=== PATIENT | female | born 2005 | race Caucasian/White ===

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

== ENCOUNTER 2025-01-11 15:30 | Emergency (ER) | payer OTHER, SELFPAY ==
[2025-01-11 15:43] VITALS: BP 112/63; PULSE 80; RESP 16; TEMP 36.9; O2SAT 100
--- NOTE | 2025-01-11 16:02 | ED.GENADULT ---
HPI - General Adult General Chief complaint: Headache Stated complaint: HEADACHE/NAUSEA Time Seen by Provider: 01/11/25 16:03 Source: patient, RN notes reviewed and old records reviewed Mode of arrival: ambulatory Limitations: no limitations History of Present Illness HPI narrative: 19-year-old female presents to the [facility] with temporal headaches, not the worst headache of her life. States that she had to leave work early last night Has had no nausea. No blurry vision or change in vision. Denies any fevers. Patient requesting work note Related Data Home Medications ?Medication ?Instructions ?Recorded ?Confirmed ?Last Taken ?Type sertraline 150 mg capsule 100 mg PO DAILY 12/24/21 08/12/22 1 Day Ago History ~07/16/22 L norgest/E estradiol-E estrad 01/11/25 Unknown History 0.15 mg-30 mcg (84)/10 mcg(7) tabs,3mos (Simpesse) levonorgestrel 120 mcg-e.estradiol patch 01/11/25 Unknown History 30 mcg/24 hr weekly transderm patch (Twirla) Allergies Allergy/AdvReac Type Severity Reaction Status Date / Time No Known Allergies Allergy Verified 01/11/25 15:34 Review of Systems Review of Systems: All systems reviewed & are unremarkable except as noted in HPI and below Constitutional: Constitutional: Reports as per HPI and Reports headache(s) ENT: Reports system reviewed and no additional complaints, except as documented Cardiovascular: Cardiovascular: Reports no additional cardiovascular complaints, Denies chest pain and Denies dyspnea Respiratory: Respiratory: Reports no additional respiratory complaints, Denies chest congestion, Denies cough and Denies dyspnea Musculoskeletal: Musculoskeletal: Reports no additional musculoskeletal complaints Integumentary/Breasts: Skin/Breast: Reports system reviewed and no additional complaints, except as docu PMFSH Past Medical History Medical History Suicide attempt Asthma Anxiety and depression H/O gastroesophageal reflux (GERD) Surgical History Surgical History No pertinent past surgical history Family History Family History Grandparent Diabetes mellitus Social History Social History Smoking status: Never smoker Substance use: current Lack of Transportation: No Lack of Food: Never True Current Housing: I Have Housing Concerned About Future Housing: No Difficulty Paying Gas/Electric Bills: No Difficulty Paying for Meds: No Currently Unemployed: No Education: Grade School Difficulty w/ Childcare or Family Care: YES Living arrangements: with family Occupation/Education: student Gender identity (if verbalized by the patient): Female Spiritual care concerns: No Comments At the time of my signature, I reviewed and agree with the nursing past medical, surgical, social, and family history. There is no relevant family history pertinent to the patient complaint. Exam Const: General: cooperative, healthy appearing, comfortable, no acute distress, well developed, alert and well nourished Nutritional Appearance: well nourished Orientation/consciousness: patient oriented x3 Limitations: no limitations HENMT: Head: normal to inspection Ears: hearing grossly normal bilaterally, external ears normal, TM's normal bilaterally, EAC's normal, mastoids normal and no periauricular adenopathy Mouth: Yes Normal oral and palatal mucosa present, Yes lip normal, Yes tongue normal and Yes moist mucous membranes Throat: posterior oropharynx normal, uvula midline and no uvular edema Eyes: General: appearance normal, both eyes and all related structures Alignment and Position: alignment normal Neck: Neck: normal visual inspection, full ROM, no lymphadenopathy and no meningeal signs Chest: Chest palpation & inspection: normal inspection of the chest Resp: Effort & Inspection: normal respiratory effort and able to speak in complete sentences Auscultation: clear to auscultation bilaterally, no crackles, no rales, no rhonchi and no wheezes Cardio: Rate: regular rate Skin: General skin exam: normal color and no rashes or lesions noted Neuro: General: patient oriented x3, gait normal, moves all extremities and no meningeal signs Cranial nerves: Yes Equal, round and reactive pupils present, Yes Bilaterally intact EOM present, Yes Nystagmus not present, Yes Normal facial strength present, Yes facial symmetry and Yes Midline tongue present Cognition (Neuro): normal cognition Speech: normal speech Gait exam (Neuro): Normal gait present Extrem: General: normal to inspection, full ROM, capillary refill normal and normal gait Psych: Appearance: grossly normal and well kempt Mental Status: mental status grossly normal Speech and movement: Normal speech and movement present and Clear speech present Affect: normal affect Attitude: cooperative Course Course Level of Care: Express Care Visit Vital Signs Vital signs: Vital Signs Temperature 98.5 F 01/11/25 15:43 Pulse Rate 80 01/11/25 15:43 Respiratory Rate 16 01/11/25 15:43 Blood Pressure 112/63 01/11/25 15:43 Pulse Oximetry 100 01/11/25 15:43 Temperature 98.5 F 01/11/25 15:43 Pulse Rate 80 01/11/25 15:43 Respiratory Rate 16 01/11/25 15:43 Blood Pressure 112/63 01/11/25 15:43 Pulse Oximetry 100 01/11/25 15:43 Reviewed Medical Decision Making MDM Narrative Medical decision making narrative: Patient sitting comfortably in exam room. Nontoxic, vitals stable. Patient in no acute distress Patient presents for headache that started when she had to leave work yesterday, requesting a work note for yesterday and today. Patient appropriate for outpatient treatment with close follow-up Discharge instructions reviewed with patient, as well as provided in writing per nursing staff. The instructions also include specific and strict return/GO TO THE ER as well as f/u information. All questions have been answered, and the patient deny any further questions with discharge and discharge plan. Some parts of this dictation were generated by voice recognition software and may contain typographical and/or grammatical inaccuracies. Differential Diagnosis Differential Diagnosis: Headache, URI Medical Records Medical records reviewed: Yes I reviewed the external patient's medical records. Vital Signs Vital Signs: Vital Signs Temperature 98.5 F 01/11/25 15:43 Pulse Rate 80 01/11/25 15:43 Respiratory Rate 16 01/11/25 15:43 Blood Pressure 112/63 01/11/25 15:43 Pulse Oximetry 100 01/11/25 15:43 Temperature 98.5 F 01/11/25 15:43 Pulse Rate 80 01/11/25 15:43 Respiratory Rate 16 01/11/25 15:43 Blood Pressure 112/63 01/11/25 15:43 Pulse Oximetry 100 01/11/25 15:43 Reviewed Lab Data Lab results reviewed: Yes I reviewed the patient's lab results. Labs: Reviewed Critical Care Time Critical Care Time Critical Care Time: No Discharge Plan Discharge Clinical Impression: Headache Patient Disposition: Home Condition: Stable Instructions: Antibiotic Form, Acute Headache (ED) Additional Instructions: Is important to rest in a cool dark room. You can alternate to 600 mg of ibuprofen and 650 mg of Tylenol every 4 hours. Try taking a 25 mg Benadryl Absolutely no screen time for 24 hours New or worsening symptoms such as the worst headache of your life, blurry vision or change in vision go directly to emergency room Patient Language: Brazilian Prescriptions: No Action L norgest/e.estradiol-e.estrad [Simpesse] 0.15 mg-30 mcg (84)/10 mcg (7) tablets,dose pack,3 month Twirla 120-30 mcg/24 hr patch weekly sertraline 150 mg capsule 100 mg PO DAILY Follow-up/Referrals: PURA,KAT JESUS [Primary Care Provider] - 1 Week Referral Note: express care follow up Stand Alone Forms: Work/School Release IP Time of Disposition: 16:09
== END 2025-01-11 16:13 | disposition home or self-care (01) ==
PROVIDERS: Emergency Provider Nurse Practitioner; PCP Nurse Practitioner Family
DX: R51.9 Headache, unspecified (principal); J45.909 Unspecified asthma, uncomplicated; K21.9 Gastro-esophageal reflux disease without esophagitis; F41.9 Anxiety disorder, unspecified; F32.A Depression, unspecified
CPT/HCPCS: 99213; G0463

== ENCOUNTER 2025-01-22 14:09 | Emergency (ER) | payer OTHER, SELFPAY ==
[2025-01-22 14:19] VITALS: BP 99/69; PULSE 82; RESP 14; TEMP 36.6; O2SAT 100
--- NOTE | 2025-01-22 15:30 | ED_ITS ---
HPI - Dental/Oral General Chief complaint: Dental/Oral Stated complaint: Skin Irritation/Tooth Pain Time Seen by Provider: 01/22/25 15:10 Source: patient, RN notes reviewed and old records reviewed Mode of arrival: ambulatory Limitations: no limitations History of Present Illness HPI Narrative: 19 year old female who presents to [facility] care with complaints of dental pain to the upper left molar region #14 tooth which is broken off with redness and swelling of gum. Patient has numerous caries of upper front teeth withfront upper teeth dark in color and broken. Patient also reports that she has a small pimple under her right chin that has had some purulent drainage, no acute redness noted to skin area or present drainage. MD Complaint: tooth pain Location: Tooth # (#14) Onset (ago): day(s) (2) Severity: mild Treatment prior to arrival: oral analgesic (Tylenol) Related Data Home Medications ?Medication ?Instructions ?Recorded ?Confirmed ?Last Taken ?Type sertraline 150 mg capsule 100 mg PO DAILY 12/24/21 1 Day Ago History ~07/16/22 L norgest/E estradiol-E estrad 01/11/25 Unknown Hist ory 0.15 mg-30 mcg (84)/10 mcg(7) tabs,3mos (Simpesse) levonorgestrel 120 mcg-e.estradiol patch 01/11/25 Unk nown History 30 mcg/24 hr weekly transderm patch (Twirla) Allergies Allergy/AdvReac Type Severity Reaction Status Date / Time No Known Allergies Allergy Verified 01/11/25 15:34 Review of Systems Review of Systems: CONSTITUTIONAL: Denies fever, chills, or sweats. ENT: Denies rhinorrhea, congestion, sore throat, or otalgia. Reports dental pain to#14 tooth where tooth has been broken off with reported abscess to site previously, denies any fevers chills or any facial swelling CARDIOVASCULAR: Denies chest pain, palpitations, or edema. RESPIRATORY: Denies cough or dyspnea. SKIN: Denies rash or itching, small healing pimple type of lesion to right chin area non draining. MUSCULOSKELETAL: Denies myalgia. NEUROLOGIC: Denies headache All systems reviewed & are unremarkable except as noted in HPI and below PMFSH Past Medical History Medical History Suicide attempt Asthma Anxiety and depression H/O gastroesophageal reflux (GERD) Surgical History Surgical History No pertinent past surgical history Family History Family History Grandparent Diabetes mellitus Social History Social History Smoking status: Never smoker Substance use: current Lack of Transportation: No Lack of Food: Never True Current Housing: I Have Housing Concerned About Future Housing: No Difficulty Paying Gas/Electric Bills: No Difficulty Paying for Meds: No Currently Unemployed: No Education: Grade School Difficulty w/ Childcare or Family Care: YES Living arrangements: with family Occupation/Education: student Gender identity (if verbalized by the patient): Female Spiritual care concerns: No Comments At time of signature, agree with nursing past medical, surgical, social and family history. There is no relevant family history pertinent to the presenting complaint Exam Narrative: GENERAL: Well-appearing, well-nourished, and in no acute distress. HEAD: Normocephalic, atraumatic. EYES: PERRLA and EOMI. ENT: Nares clear, no rhinorrhea or epistaxis. Mucous membranes moist. Missing teeth, broken teeth, caries with some redness and swelling of gum around broken tooth #14 no obvious signs of abscess. Patient has darken broken teeth upper front with obvious caries, no trismus or any Armando angina noted. NECK: Supple. no lymphadenopathy CHEST: Clear to auscultation. No respiratory distress.SAO2 100% on room air HEART: Regular rate and rhythm. No murmur heard. Normal peripheral pulses. SKIN: Warm, dry, no rash. small healing pimple type of lesion right chin area NEURO: No focal deficits. Alert and oriented x3. Course Course Emergency Course: Patient is aware of diagnosis, understands and agrees to treatment plan. Anticipatory guidance given. Patient agrees to follow-up as directed and is aware of reasons to seek care at the emergency department. Portions of this record may have been created with voice recognition software Level of Care: Express Care Visit Vital Signs Vital signs: Vital Signs Temperature 36.6 C 01/22/25 14:19 Pulse Rate 82 01/22/25 14:19 Respiratory Rate 14 01/22/25 14:19 Blood Pressure 99/69 L 01/22/25 14:19 Pulse Oximetry 100 01/22/25 14:19 Oxygen Delivery Room Air 01/22/25 14:19 Temperature 36.6 C 01/22/25 14:19 Pulse Rate 82 01/22/25 14:19 Respiratory Rate 14 01/22/25 14:19 Blood Pressure 99/69 L 01/22/25 14:19 Pulse Oximetry 100 01/22/25 14:19 Oxygen Delivery Room Air 01/22/25 14:19 Reviewed MDM - Dental/Oral MDM Narrative Medical decision making narrative: Patients pain and complaint coupled with physical findings are consistent with dentalgia. There are no focal signs of space occupying lesions that are compromising to the airway; no dysphagia, odynophagia, dysphonia, or dyspnea. No uvular deviation or soft palate edema. Patient is non-toxic appearing. The floor of the mouth is soft with no signs of Armando's Angina; no induration below mandible, no neck pain.? Patient is without trismus or drooling and able to swallow secretions.? Patient is felt appropriate for discharge home with dental follow up. Differential Diagnosis Differential diagnosis: Likely dental caries, toothache, dental abscess, fracture of tooth and other (dentalgia, poor dentition) Medical Records Attestation: I reviewed the patient's medical records. Critical Care Time Critical Care Time Critical Care Time: No Discharge Plan Discharge Clinical Impression: Abscess, dental, Dental caries Patient Disposition: Home Condition: Stable Instructions: Antibiotic Form, Dental Abscess (ED) Additional Instructions: Avoid temperature extremes May apply heat or ice to the face Gentle brushing and flossing Antibiotic as directed Tylenol for lesser pain Use ibuprofen regularly Follow-up with the dentist as soon as possible--see the list provided If your symptoms persist, change or worsen significantly before you can contact your personal physician then please, without delay, go to the emergency department for further evaluation. Follow-up with PCP in 7-10 days or sooner if needed Patient Language: Kazakh Prescriptions: New amoxicillin-pot clavulanate 875-125 mg tablet 1 tablet PO Q12H Qty: 20 0RF No Action L norgest/e.estradiol-e.estrad [Simpesse] 0.15 mg-30 mcg (84)/10 mcg (7) tablets,dose pack,3 month Twirla 120-30 mcg/24 hr patch weekly sertraline 150 mg capsule 100 mg PO DAILY Follow-up/Referrals: PURA,KAT JESUS [Primary Care Provider] Stand Alone Forms: Work/School Release IP Time of Disposition: 15:46 Quality [place] Coma Scale Eyes: Open Verbal: Oriented and Alert Motor: Follows Commands [place] Coma Total Score: 15
== END 2025-01-22 15:51 | disposition home or self-care (01) ==
PROVIDERS: Emergency Provider Registered Nurse; PCP Nurse Practitioner Family
DX: K04.7 Periapical abscess without sinus (principal); K02.9 Dental caries, unspecified; J45.909 Unspecified asthma, uncomplicated; K21.9 Gastro-esophageal reflux disease without esophagitis; F41.9 Anxiety disorder, unspecified; F32.A Depression, unspecified
CPT/HCPCS: 99213; G0463

== ENCOUNTER 2025-01-30 12:31 | Emergency (ER) | payer OTHER, SELFPAY ==
--- NOTE | ~2025-01-30 | XR_ITS ---
EXAMINATION: XR chest 2V, 01/30/2025 14:40 CDT HISTORY: cough, history of asthma COMPARISON: No comparisons available. Technique: 2 views obtained. Findings: The lungs are clear, no effusion. No pneumothorax. Heart is normal size. Mediastinal and hilar contours are within normal limits. Bony thorax no acute abnormality. Impression: No acute cardiopulmonary abnormality. Reviewed, dictated and finalized at location A. Impression: No acute cardiopulmonary abnormality.
[2025-01-30 12:33] VITALS: BP 122/72; PULSE 105; RESP 14; TEMP 36.9; O2SAT 99
--- NOTE | 2025-01-30 13:43 | ED.URI ---
HPI - URI/Sore Throat General Chief Complaint: Upper Respiratory Infection Stated Complaint: headache, cold sx's Time Seen by Provider: 01/30/25 12:36 History of Present Illness HPI Narrative: Patient is a 19-year-old female who presents to the ER with a 2 day history of headache, sore throat, cough, congestion, and mild shortness of breath. She reports she came in for evaluation today due to the pressure behind her right eye. Patient denies any recent fevers, neck stiffness, mastoid tenderness, or difficulty swallowing. She endorses a history of asthma, ADHD, anxiety, and depression. Related Data Home Medications ?Medication ?Instructions ?Recorded ?Confirmed ?Last Taken ?Type sertraline 150 mg capsule 100 mg PO DAILY 12/24/21 08/12/22 1 Day Ago History ~07/16/22 L norgest/E estradiol-E estrad 01/11/25 Unknown History 0.15 mg-30 mcg (84)/10 mcg(7) tabs,3mos (Simpesse) levonorgestrel 120 mcg-e.estradiol patch 01/11/25 Unknown History 30 mcg/24 hr weekly transderm patch (Twirla) Allergies Allergy/AdvReac Type Severity Reaction Status Date / Time No Known Allergies Allergy Verified 01/30/25 12:32 Review of Systems Review of Systems: All systems reviewed & are unremarkable except as noted in HPI and below PMFSH Past Medical History Medical History Suicide attempt Asthma Anxiety and depression H/O gastroesophageal reflux (GERD) Surgical History Surgical History No pertinent past surgical history Family History Family History Grandparent Diabetes mellitus Social History Social History Smoking status: Never smoker Substance use: current Lack of Transportation: No Lack of Food: Never True Current Housing: I Have Housing Concerned About Future Housing: No Difficulty Paying Gas/Electric Bills: No Difficulty Paying for Meds: No Currently Unemployed: No Education: Grade School Difficulty w/ Childcare or Family Care: YES Living arrangements: with family Occupation/Education: student Gender identity (if verbalized by the patient): Female Spiritual care concerns: No Exam Narrative: GENERAL: Ill appearing, well-nourished, non-toxic, in no acute distress. HEAD: Normocephalic, atraumatic. NECK: Supple. No adenopathy, no masses. RESPIRATORY: Airway patent, respirations nonlabored. Clear to auscultation bilaterally, no rales, rhonchi, wheezing. CARDIOVASCULAR: Regular rate and rhythm without murmurs, rubs, or gallops. Peripheral pulses 2+ and equal bilaterally. ABDOMINAL: Soft, nontender, nondistended, no hepatosplenomegaly. Normoactive BS. MUSCULOSKELETAL: Moves all extremities. Strength/ROM intact without gross deformities. SKIN: Warm, dry, pallor. No rashes. NEURO: A&O X3. Speech clear. Cranial nerves II-XII intact. No ataxic movements. PSYCHIATRIC: Appropriate mood and affect. Normal interaction. Course Vital Signs Vital signs: Vital Signs Temperature 36.9 C 01/30/25 12:33 Pulse Rate 105 H 01/30/25 12:33 Respiratory Rate 14 01/30/25 12:33 Blood Pressure 122/72 01/30/25 12:33 Pulse Oximetry 99 01/30/25 12:33 Oxygen Delivery Room Air 01/30/25 12:33 Temperature 36.9 C 01/30/25 12:33 Pulse Rate 105 H 01/30/25 12:33 Respiratory Rate 14 01/30/25 12:33 Blood Pressure 122/72 01/30/25 12:33 Pulse Oximetry 99 01/30/25 12:33 Oxygen Delivery Room Air 01/30/25 12:33 MDM - URI/Sore Throat MDM Narrative Medical decision making narrative: Patient is a 19-year-old female who presents to the ER with a 2 day history of headache, sore throat, cough, congestion, and mild shortness of breath. She reports she came in for evaluation today due to the pressure behind her right eye. Patient denies any recent fevers, neck stiffness, mastoid tenderness, or difficulty swallowing. She endorses a history of asthma, ADHD, anxiety, and depression. Labs Ordered: COVID/flu/RSV, strep swab Imaging Ordered: Chest x-ray Medications Ordered: Prednisone 40 mg p.o., ibuprofen 600 mg p.o. Results: Patient's COVID swab was positive. Her chest x-ray indicates no acute abnormalities. Diagnosis: COVID-19 Patient Education/Shared MDM: Results of lab work and imaging shared with patient. She endorses mild improvement of symptoms following medication administration. Patient strongly advised to maintain hydration status upon discharge and follow-up with her PCP as needed. She will be discharged home with a prescription for oral steroids, Flonase. Patient may take Tylenol and/or ibuprofen at home for pain control. She reports she has inhalers at home. Strict return precautions provided. Patient verbalized understanding and is in agreement with plan. Vital signs stable at time of discharge. All questions answered. Differential Diagnosis Differential diagnosis: Likely upper respiratory infection, sinusitis, viral infection, bronchitis and influenza Lab Data Attestation: I reviewed the patient's lab results. Labs: Lab Results 01/30/25 Range/Units 13:50 Influenza A (RT-PCR) Negative (Negative) Influenza B (RT-PCR) Negative (Negative) RSV (RT-PCR) Negative (Negative) SARS-CoV-2 RNA (RT-PCR) Positive A (Negative) Group A Strep (PCR) Not detected (Negative) Imaging Data Attestation: I personally reviewed and interpreted this imaging study as follows: Radiologist's impression: Impressions Chest X-Ray 01/30/25 14:52 Impression: No acute cardiopulmonary abnormality. Discharge Plan Discharge Clinical Impression: Upper respiratory infection, Sinusitis, COVID-19 Patient Disposition: Home Condition: Stable Instructions: Antibiotic Form, Sinusitis (ED), COVID-19 (Coronavirus Disease 2019) (ED) Additional Instructions: Please return to the ER with any worsening symptoms. Follow-up with primary care provider as needed. Take all medications as prescribed, including regularly scheduled medications. Remember to stay hydrated with lots of water. Sinus infections are not routinely treated with antibiotics so please use steroids and anti-inflammatories to help decrease swelling. Patient Language: Emirati Prescriptions: New methylprednisolone [Medrol (Robi)] 4 mg tablets,dose pack See Rx Instructions .ROUTE .COMPLEX Qty: 21 0RF Rx Instructions: orally per package directions fluticasone propionate [Flonase Allergy Relief] 50 mcg/actuation spray,suspension 2 spray intranasal DAILY Qty: 16 0RF Rx Instructions: administer into each nostril No Action L norgest/e.estradiol-e.estrad [Simpesse] 0.15 mg-30 mcg (84)/10 mcg (7) tablets,dose pack,3 month Twirla 120-30 mcg/24 hr patch weekly sertraline 150 mg capsule 100 mg PO DAILY amoxicillin-pot clavulanate 875-125 mg tablet 1 tablet PO Q12H Qty: 20 0RF Follow-up/Referrals: PURA,KAT JESUS [Primary Care Provider] Stand Alone Forms: Work/School Release IP Time of Disposition: 15:30
[2025-01-30] MEDS: IBUPROFEN 600 MG TABLET PO (14:12)
[2025-01-30 14:26] LABS: Strep Group A RT-PCR NOT DETECTED (Negative)
[2025-01-30 14:37] LABS: Influenza A QL RT-PCR Negative (Negative); Influenza B QL RT-PCR Negative (Negative); RSV RNA, RT-PCR Negative (Negative); SARS-CoV-2 RNA PCR Positive (Negative)
[2025-01-30 15:39] VITALS: BP 116/68; PULSE 78; RESP 16; TEMP 36.6; O2SAT 98
== END 2025-01-30 15:41 | disposition home or self-care (01) ==
PROVIDERS: Emergency Provider Registered Nurse; PCP Nurse Practitioner Family
DX: U07.1 COVID-19 (principal); J06.9 Acute upper respiratory infection, unspecified; J32.9 Chronic sinusitis, unspecified; J45.909 Unspecified asthma, uncomplicated; F41.9 Anxiety disorder, unspecified; F32.A Depression, unspecified; K21.9 Gastro-esophageal reflux disease without esophagitis
CPT/HCPCS: 71046; 87637; 87651; 99283; A9270; J7512

== ENCOUNTER 2025-02-13 19:05 | Emergency (ER) | payer OTHER, SELFPAY ==
--- NOTE | 2025-02-13 19:08 | ED.NECK ---
HPI - Neck Pain/Injury General Chief Complaint: Neck Pain/Injury Stated Complaint: NECK PAIN Time Seen by Provider: 02/13/25 19:13 Source: patient and RN notes reviewed Mode of arrival: ambulatory Limitations: no limitations History of Present Illness HPI Narrative: 19-year-old female presents concern for neck pain. Reports yesterday she went on a roller coaster and witchcraft a roller coaster she was having neck pain. Reports the pain worsened throughout the day and was worse when she woke up today. She denies decreased strength, sensation, range of motion in any extremity. She denies tingling in any extremity. She reports pain with range of motion. She reports pain goes up to the back her head with range of motion. She has taken Tylenol and ibuprofen without relief. MD complaint: neck pain Related Data Home Medications ?Medication ?Instructions ?Recorded ?Confirmed ?Last Taken ?Type sertraline 150 mg capsule 100 mg PO DAILY 12/24/21 08/12/22 1 Day Ago History ~07/16/22 L norgest/E estradiol-E estrad 1 tablet 01/11/25 Unknown History 0.15 mg-30 mcg (84)/10 mcg(7) tabs,3mos (Simpesse) Flovent HFA 02/13/25 Unknown History albuterol 02/13/25 Unknown History aripiprazole .ROUTE 02/13/25 Unknown History buspirone 02/13/25 Unknown History montelukast 02/13/25 Unknown History omeprazole 02/13/25 Unknown History Allergies Allergy/AdvReac Type Severity Reaction Status Date / Time No Known Allergies Allergy Verified 02/13/25 19:14 Review of Systems Review of Systems: CONSTITUTIONAL: Denies malaise, chills, sweats, or fever. CARDIOVASCULAR: Denies chest pain, palpitations, or edema. RESPIRATORY: Denies cough or dyspnea. SKIN: Denies rash or itching. MUSCULOSKELETAL: Reports neck pain NEUROLOGIC: Denies numbness, weakness, or headache. All systems reviewed & are unremarkable except as noted in HPI and below PMFSH Past Medical History Medical History Suicide attempt Asthma Anxiety and depression H/O gastroesophageal reflux (GERD) Surgical History Surgical History No pertinent past surgical history Family History Family History Grandparent Diabetes mellitus Social History Social History Smoking status: Never smoker Substance use: current Lack of Transportation: No Lack of Food: Never True Current Housing: I Have Housing Concerned About Future Housing: No Difficulty Paying Gas/Electric Bills: No Difficulty Paying for Meds: No Currently Unemployed: No Education: Grade School Difficulty w/ Childcare or Family Care: YES Living arrangements: with family Occupation/Education: student Gender identity (if verbalized by the patient): Female Spiritual care concerns: No Comments At time of signature, agree with nursing past medical, surgical, social and family history. There is no relevant family history pertinent to the presenting complaint Exam Narrative: GENERAL: Well-appearing, well-nourished, and in no acute distress. HEAD: Normocephalic, atraumatic. EYES: PERRLA and EOMI. NECK: Supple. No lymphadenopathy. CHEST: Clear to auscultation. No respiratory distress. HEART: Regular rate and rhythm. Distal pulses palpable and equal, cap refill <3 seconds ABDOMEN: Soft, nontender, nondistended, normal active bowel sounds, no palpable or pulsatile masses. No CVA tenderness MUSCULOSKELETAL: Normal range of motion and strength in all extremities. Normal sensation in dermatomal distributions with sensitivity to light touch and pain. Midline back tenderness to palpation. No paraspinal tenderness. Transfers from lying to sitting to standing. SKIN: Warm, dry, no rash. No ecchymosis, erythema, open wounds to neck. NEURO: No focal deficits. Alert and oriented x3. Reflexes intact. Normal gait. PSYCH: Normal mood and affect Course Course Emergency Course: I discussed patient's symptoms and exam and advised that further evaluation the emergency room would be advisable given patient's immediate onset of pain and midline neck tenderness. Patient states ?I am just here for a work note? and said she will go to the emergency room tomorrow. I again advised her of risks of not going to the emergency room sooner, patient verbalizes understanding. Portions of this record may have been created with voice recognition software Level of Care: Express Care Visit Vital Signs Vital signs: Reviewed. MDM - Neck Pain/Injury MDM Narrative Medical decision making narrative: Is patient greater than 65 years of age, have extreme para thesis or had a dangerous mechanism injury?: No Is patient in the sitting position, had delayed onset of pain, no midline tenderness, simple rear-end motor vehicle collision?: Patient did not have delayed onset of pain This patient able to actively rotate neck 45? to the left in the right: Yes I evaluated this patient in the express care. History is obtained from patient who is an independent historian and physical exam was performed.? Available medical records were reviewed. ? Patient is non-toxic appearing and is in no distress. ? Differential diagnosis and treatment plan were discussed with the patient. Patient agrees with discussion and after shared medical decision making agrees with plan of care. All questions were answered to the patient's satisfaction. Patient is appropriate for outpatient treatment and follow-up. Critical Care Time Critical Care Time Critical Care Time: No Discharge Plan Discharge Clinical Impression: Neck pain Patient Disposition: Home Condition: Stable Instructions: Acute Neck Pain (ED) Additional Instructions: Your pain would be best evaluate din the emergency room. Please go to the ER as soon as you can. Please follow up with your Primary Care Doctor within 48-72 hours - call for an appointment. Activity as tolerated. Take Motrin 800mg every 6-8 hours with food for the next 2-3 days, take muscle relaxers every 8 hours as needed for muscle spasm- do not drive or make any important decisions while on this medication for it can make you drowsy. You may apply ice to the area as needed. If you experience any worsening pain, swelling, numbness, weakness please go to ER. Patient Language: Eritrean Prescriptions: New cyclobenzaprine 10 mg tablet 10 mg PO TID PRN (Reason: muscle spasm) Qty: 20 0RF ibuprofen 800 mg tablet 800 mg PO Q6H PRN (Reason: pain) Qty: 30 0RF No Action L norgest/e.estradiol-e.estrad [Simpesse] 0.15 mg-30 mcg (84)/10 mcg (7) tablets,dose pack,3 month 1 tablet sertraline 150 mg capsule 100 mg PO DAILY aripiprazole .ROUTE omeprazole Flovent HFA albuterol montelukast buspirone fluticasone propionate [Flonase Allergy Relief] 50 mcg/actuation spray,suspension 2 spray intranasal DAILY Qty: 16 0RF Rx Instructions: administer into each nostril Follow-up/Referrals: PURA,KAT JESUS [Primary Care Provider] Stand Alone Forms: Work/School Release IP Time of Disposition: 19:22
[2025-02-13 19:14] VITALS: BP 111/78; PULSE 98; RESP 16; TEMP 36.2; O2SAT 100
== END 2025-02-13 19:25 | disposition home or self-care (01) ==
PROVIDERS: Emergency Provider Nurse Practitioner; PCP Nurse Practitioner Family
DX: M54.2 Cervicalgia (principal); J45.909 Unspecified asthma, uncomplicated; K21.9 Gastro-esophageal reflux disease without esophagitis; F41.9 Anxiety disorder, unspecified; F32.A Depression, unspecified
CPT/HCPCS: 99213; G0463

== ENCOUNTER 2025-02-14 09:56 | Emergency (ER) | payer OTHER, SELFPAY ==
--- NOTE | ~2025-02-14 | CT_ITS ---
CT thoracic spine without contrast CLINICAL HISTORY: pain s/p riding roller coaster Technique: Axial images thoracic inlet to skull base Sagittal and coronal reformats. No contrast CT images acquired with automatic exposure control for dose reduction DLP: 559 mGy-cm Comparison: Chest x-rays 01/30/2025 Findings: No fracture. No listhesis. No degenerative changes. No paraspinal soft tissue abnormality. Visualized heart and lungs unremarkable. Visualized retroperitoneum unremarkable. IMPRESSION: 1. No acute findings. Reviewed, dictated and finalized at location R. IMPRESSION: 1. No acute findings.
--- NOTE | ~2025-02-14 | CT_ITS ---
EXAMINATION: CT cervical spine wo con COMPARISON: None HISTORY: whiplash/pain s/p riding rollercoaster TECHNIQUE: Axial images were obtained through the spine without IV contrast. Coronal, sagittal reconstruction images were obtained from the axial views. CT scan performed using dose optimization techniques including the following automated exposure control; adjustment of mA and/or kV; use of iterative reconstruction technique. Automatic exposure control was used to reduce radiation dose. Permanent radiation dose record is archived to PACS. FINDINGS: The vertebral heights are intact. No fracture or subluxation. The disc heights are intact. Soft tissues unremarkable. Impression: No acute abnormality. Reviewed, dictated and finalized at location A. Impression: No acute abnormality.
[2025-02-14 10:02] VITALS: BP 137/79; PULSE 95; RESP 18; TEMP 36.8; O2SAT 99
[2025-02-14] MEDS: CYCLOBENZAPRINE HCL 5 MG TABLET PO (10:41)
[2025-02-14] MEDS: ACETAMINOPHEN 500 MG TABLET 1000 MG PO (10:41)
--- NOTE | 2025-02-14 10:54 | ED.NECK ---
HPI - Neck Pain/Injury General Chief Complaint: Neck Pain/Injury Stated Complaint: pain in neck since friday Time Seen by Provider: 02/14/25 10:13 Source: patient Mode of arrival: ambulatory Limitations: no limitations History of Present Illness HPI Narrative: Patient is a 19-year-old female who presents the ED with report of neck pain. Patient reports she rode the [employer] [place] [employer] on Friday. Began having pain throughout her neck and upper back on Friday. Was seen at urgent care, prescribed muscle relaxers, but was unable to pick this after the pharmacy. They recommended she come here to get head CT imaging of her neck. Patient reports persistent pain today. Took ibuprofen prior to arrival. Denies numbness or weakness of extremities, headache. Related Data Home Medications ?Medication ?Instructions ?Recorded ?Confirmed ?Last Taken ?Type sertraline 150 mg capsule 100 mg PO DAILY 12/24/21 08/12/22 1 Day Ago History ~07/16/22 L norgest/E estradiol-E estrad 1 tablet 01/11/25 Unknown History 0.15 mg-30 mcg (84)/10 mcg(7) tabs,3mos (Simpesse) Flovent HFA 02/13/25 Unknown History albuterol 02/13/25 Unknown History aripiprazole .ROUTE 02/13/25 Unknown History buspirone 02/13/25 Unknown History montelukast 02/13/25 Unknown History omeprazole 02/13/25 Unknown History Allergies Allergy/AdvReac Type Severity Reaction Status Date / Time No Known Allergies Allergy Verified 02/13/25 19:14 Review of Systems Review of Systems: All systems reviewed & are unremarkable except as noted in HPI. All systems reviewed & are unremarkable except as noted in HPI and below [facility] Past Medical History Medical History Suicide attempt Asthma Anxiety and depression H/O gastroesophageal reflux (GERD) Surgical History Surgical History No pertinent past surgical history Family History Family History Grandparent Diabetes mellitus Social History Social History Smoking status: Never smoker Substance use: current Lack of Transportation: No Lack of Food: Never True Current Housing: I Have Housing Concerned About Future Housing: No Difficulty Paying Gas/Electric Bills: No Difficulty Paying for Meds: No Currently Unemployed: No Education: Grade School Difficulty w/ Childcare or Family Care: YES Living arrangements: with family Occupation/Education: student Gender identity (if verbalized by the patient): Female Spiritual care concerns: No Exam Narrative: GENERAL: Well appearing, well-nourished, non-toxic, in no acute distress. HEAD: Normocephalic, atraumatic. NECK: C-collar in place. Diffuse TTP throughout cervical region and gris paraspinal musculature. No palpable bony deformities. RESPIRATORY: Airway patent, respirations nonlabored. CARDIOVASCULAR: Regular rate and rhythm. MUSCULOSKELETAL: Moves all extremities. No gross deformities. TTP along upper thoracic spinal musculature. Sensation and strength intact throughout bilateral lower extremities, equal bilaterally. SKIN: Warm, dry, normal color. NEURO: A&O X3. Speech clear. Cranial nerves II-XII grossly intact. Steady gait. No ataxic movements. PSYCHIATRIC: Appropriate mood and affect. Normal interaction. Course Vital Signs Vital signs: Vital Signs Temperature 98.3 F 02/14/25 10:02 Pulse Rate 95 02/14/25 10:02 Respiratory Rate 18 02/14/25 10:02 Blood Pressure 137/79 02/14/25 10:02 Pulse Oximetry 99 02/14/25 10:02 Oxygen Delivery Room Air 02/14/25 10:02 Temperature 98.3 F 02/14/25 10:02 Pulse Rate 95 02/14/25 10:02 Respiratory Rate 18 02/14/25 10:02 Blood Pressure 137/79 02/14/25 10:02 Pulse Oximetry 99 02/14/25 10:02 Oxygen Delivery Room Air 02/14/25 10:02 MDM - Neck Pain/Injury MDM Narrative Medical decision making narrative: Patient?s pain is positional and localized to paraspinal muscles without signs of cord compression. Normal neurologic exams. No red flag symptoms. Normal strength and sensation of upper extremities. CT of cervical and thoracic spine negative for fracture, no concerning findings. Discussed likely cervical strain/whiplash injury, continued management of such. Discussed rice therapy. Given return precautions. Discharged in stable condition. Medical Records Attestation: I reviewed the patient's medical records. Imaging Data Attestation: I personally reviewed and interpreted this imaging study as follows: Radiologist's impression: ITS Impressions Thoracic Spine CT 02/14/25 10:38 IMPRESSION: 1. No acute findings. Cervical Spine CT 02/14/25 10:40 Impression: No acute abnormality. Discharge Plan Discharge Clinical Impression: Cervical strain Qualifiers: Encounter type: initial encounter Qualified Code(s): S16.1XXA - Strain of muscle, fascia and tendon at neck level, initial encounter Patient Disposition: Home Condition: Stable Instructions: Antibiotic Form, Cervical Strain (ED), Cervical Sprain (ED) Additional Instructions: Continue Tylenol and Ibuprofen as needed for pain. You may use ice/heat, lidocaine patches to area of pain. Take muscle relaxers as needed and prescribed. Recommend taking these at night as they may cause sedation. Do not drive, operate heavy machinery, drink alcohol while on muscle relaxers as this may cause further sedation. Follow-up with your primary care doctor for further evaluation. Return to the ED if you experience worsening or severe pain, recurrent injury, numbness in arms or legs, going to the bathroom without meaning to, unable to keep down food or drink, or any other symptoms of concern. Patient Language: Luxembourgish Prescriptions: New lidocaine 5 % adhesive patch,medicated 1 patch topical DAILY Qty: 15 0RF Rx Instructions: leave on most painful area for up to 12 hrs No Action L norgest/e.estradiol-e.estrad [Simpesse] 0.15 mg-30 mcg (84)/10 mcg (7) tablets,dose pack,3 month 1 tablet sertraline 150 mg capsule 100 mg PO DAILY aripiprazole .ROUTE omeprazole Flovent HFA albuterol montelukast buspirone cyclobenzaprine 10 mg tablet 10 mg PO TID PRN (Reason: muscle spasm) Qty: 20 0RF ibuprofen 800 mg tablet 800 mg PO Q6H PRN (Reason: pain) Qty: 30 0RF fluticasone propionate [Flonase Allergy Relief] 50 mcg/actuation spray,suspension 2 spray intranasal DAILY Qty: 16 0RF Rx Instructions: administer into each nostril Follow-up/Referrals: PURA,ANN MARIE, ELECTRONIC GAMING DEVICE SUPERVISOR [Primary Care Provider] Time of Disposition: 10:57
--- OUTSIDE RECORDS SUMMARY | 2025-02-14 11:00 | XMS_ITS | Encounter Summary ---
Author Organization [facility] Address [facility] [place] [address] Care Team Providers Care Pta Name Role Phone Genia Gutierrez Primary Care Provider [phone] Encounter Details Date Type Department Care Team (Late st Contact Info) Description 11/20/2022 MyChart Message Enc [facility] [address] [place] [address] Mychart, [facility] Provider Air Quality Message Social History Tobacco Use Types Packs/Day Years Used Date Smoking Tobacco: Never Smokeless Tobacco: Never Alcohol Use Standard Drinks/Week Comments No 0 (1 standard drink = 0.6 oz pur e alcohol) AUDIT-C Answer Date Recorded Frequency of Alcohol Consumption Never 05/03/2019 Average Number of Drinks Not on file 019 Frequency of Binge Drinking Not on file 01/2019 PHQ-2 Answer Date Recorded Patient Health Questionnaire-2 Score 3 08/30/2022 Comments No Sex and Gender Information Value Date Recorded Sex Assigned at Not on file Legal Sex Female 10:57 AM P[employer]CH [employer] Gender Identity Not on file Sexual Orientation Not on file documented as of this encounter Plan of Treatment Not on file documented as of this encounter Visit Diagnoses Not on filedocumented in this encounter Additional Health Concerns Assessment Noted Time PHQ-9 Depression Total Score: 13 023 11:52 AM CDT PHQ-2 Depression Total Score: 0 08/31/19 23 11:54 AM CDT documented as of this encounter Care Teams Pta Relationship Specialty Start Date End Date Genia Gutierrez FNP [address] [place] [id number] PCP - General Nurse Practitioner Family 05/03/19 documented as of this encounter
--- OUTSIDE RECORDS SUMMARY | 2025-02-14 11:00 | XMS_ITS | Encounter Summary ---
Author Organization [facility] Address [facility] [place] [address] Care Team Providers Care Investigative Agent Name Role Phone Genia Gutierrez Primary Care Provider [phone] Encounter Details Date Type Department Care Team (Late st Contact Info) Description 11/18/2023 Therapy Plan [facility] [address] [place] [address] Gwen Weber, PT [address] [place], [place] [id number] Social History Tobacco Use Types Packs/Day Years Used Date Smoking Tobacco: Never Smokeless Tobacco: Never Alcohol Use Standard Drinks/Week Comments No 0 (1 standard drink = 0.6 oz pur e alcohol) AUDIT-C Answer Date Recorded Frequency of Alcohol Consumption Never 05/03/2019 Average Number of Drinks Not on file 019 Frequency of Binge Drinking Not on file 1201/2019 PHQ-2 Answer Date Recorded Patient Health Questionnaire-2 Score 3 08/30/2022 Comments No Sex and Gender Information Value Date Recorded Sex Assigned at Not on file 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
--- OUTSIDE RECORDS SUMMARY | 2025-02-14 11:00 | XMS_ITS | Clinical Summary ---
Author Organization [facility] Address [address] [place] [address] Care Team Providers Care Volunteer Services Supervisor Name Role Phone Genia Gutierrez [facility] Primary Care Provider [phone] Allergies No known active allergies Medications multi vitamin/minerals tablet Take 1 tablet by mouth daily. 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 Use with inhalers 1 each 1 Active ONDANSETRON 4 MG disintegrating tabletIndications: Nausea DISSOLVE 1 TABLET(4 MG) ON THE TONGUE EVERY 8 HOURS NEEDED FOR NAUSEA 20 tablet 2 Active Pyridoxine HCl (VITAMIN B-6) 25 MG Tab Take 1 tablet by mouth every morning. 2 Active ARIPiprazole (ABILIFY) 10 MG tabletIndications: Mild episode of recurrent major depressive disorder Take 1 tablet (10 mg total) by mouth daily. 90 tablet 3 3 Active busPIRone (BUSPAR) 10 MG tabletIndications: Anxiety Take 2 tablets (20 mg total) by mouth 2 (two) times daily. 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 3 Active cloNIDine (CATAPRES) 0.1 MG tablet Take 1 tablet (0.1 mg total) by mouth nightly at bedtime. 3 Active Vitamin D, Ergocalciferol, 23326 units CapIndications:Vit garcia D deficiency Take 50,000 Int'l Units by mouth once a week. 12 capsule 3 4 Active omeprazole (PRILOSEC) 20 MG capsuleIndications :Gastroesophageal reflux disease, unspecified whether esophagitis present Take 2 capsules (40 mg total) by mouth daily. 90 capsule 3 4 Active ibuprofen (MOTRIN) 600 MG tabletIndications: Chronic right shoulder pain Take 1 tablet (600 mg total) by mouth every 8 (eight) hours as needed for Pain. 30 tablet 1 4 Active Active Problems Problem Noted Date Diagnosed Date Moderate episode of recurrent major depressive d isorder 08/30/2022 Spontaneous vaginal delivery ([facility]) 3 Other iron deficiency anemia 08/30/2022 17 weeks gestation of ([facility]) 2021 Thoughts of self harm 08/28/2021 Mild episode of recurrent major depressive disor aleksandra 08/28/2021 Anxiety 04/11/2021 Chronic pain of right knee 04/11/2021 BMI 95th percentile or great er with athletic build, pediatric 02/19/2021 Gender identity disorder of adolescence 02/20/20 21 Vitamin D deficiency 10/30/2020 Vitamin B 12 deficiency 10/30/2020 Fever in other diseases 09/20/2020 Generalized abdominal pain 09/20/2020 Fatigue, unspecified type 09/20/2020 Acne vulgaris 11/16/2019 Gastroesophageal reflux dise ase, unspecified whether esophagitis present 06/22/2019 Chronic pain of both knees 06/22/2019 Dysmenorrhea 05/09/2019 Primary insomnia 05/09/2019 Non-suicidal self harm ([facility]) 019 Depression with anxiety 07/21/2018 Extrinsic asthma ([facility]) 03/20/2011 Overview (05/03/2019): Overview: Resolved Problems Problem Noted Date Diagnosed Date Resolved Date Sore throat 09/20/2020 02/19/2021 Sinus headache 09/20/2020 02/19/2021 Nausea 09/20/2020 02/19/2021 Body aches 09/20/2020 02/19/2021 Chills 09/20/2020 02/19/2021 Hospital discharge follow-up 06/22/2019 02/04/2020 BMI pediatric, 5th percentil e to less than 85% for age 1205/09/2019 02/19/2021 Encounter for medical examin ation to establish care 05/09/2019 02/04/2020 Encounters Date Type Department Care Team Description 01/30/2025 Scan HEALTH INFO SRVCS Scanned, Doc Med Group 01/22/2025 Scan MG HEALTH INFO SRVCS Scanned, Doc Med Group 01/11/2025 Scan HEALTH INFO SRVCS Scanned, Doc Med Group from Last 3 Months Immunizations Immunization Administration Dates Next Due DTaP-IPV (Kinrix) 10/24/2010 Dtap 05/21/2007 Fluzone 6 Months+ Quad (0.5 mL Prefilled Syringe) 03/07/2017,02/08/2016,05/11/2015,2013 HPV GARDASIL 9-VALENT 11/14/2016 HPV4 (Gardasil) 11/18/2014 Hepatitis A (Generic) 01/20/2009,11/09/2007 Hepatitis A Vaccine - 2 Dose 01/20/2009,11/09/19 08 Hepatitis B (Generic Peds) 2005 Hepatitis B Pediatric 2005 Hib (Generic) 02/19/2007, 6,03/10/2006,2005 Hib Vaccine, Prp-D 02/19/2007, 6,03/10/2006,2005 Influenza (Generic) 03/18/2011, 0,05/11/2008,2006,06/28/2006,05/12/2006 Influenza 3 yrs + Preservati ve Free (Fluzone) 04/02/2013 Influenza 3 yrs + with Prese rvative (Fluzone) 03/18/2011 Influenza Adult (Generic) 03/07/2017,,05/11/2015,2013,05/11/2008,03/24/2007,06/28/2006,1 2005 MMR 10/24/2010,2006 Menactra 11/14/2016 Pediarix 05/12/2006,03/10/2006,01/07/2006 Pneumococcal Vaccine 2006,05/12/20 06,03/10/2006,2005 Polio Ipv (Generic) 05/12/2006,03/10/2006,2005 Prevnar(Pcv 7) 2006, 6,03/10/2006,2005 Tdap (Boostrix) 11/14/2016 Tdap (Generic) 11/14/2016 Varicella (Generic) 10/24/2010,02/19/2007 Varicella Vaccine 10/24/2010,02/19/2007 Family History Medical History Relation Comments No Known Problems Father Arthritis Mother COPD Mother Depression Mother Hypertension Mother CHF Paternal Grandfather Diabetes Paternal Grandfather Diabetes Paternal Grandmother Relation Status Comments Father Mother Alive Paternal Grandfather Paternal Grandmother Social History Tobacco Use Types Packs/Day Years Used Date Smoking Tobacco: Never Smokeless Tobacco: Never Tobacco Cessation:Counseling Given: Not Answered Alcohol Use Standard Drinks/Week Comments No 0 [...] on file 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 Gender Identity Not on file Sexual Orientation Not on file Last Filed Vital Signs Vital Sign Reading Time Taken Comments Blood Pressure 117/71 06/02/2023 10:11 AM IMMUNOLOGY TEACHER Pulse 76 06/02/2023 10:11 AM IMMUNOLOGY TEACHER Temperature 36.8 C (98.3 F) 06/02/2023 10:11 AM IMMUNOLOGY TEACHER Respiratory Rate 16 06/02/2023 10:11 AM IMMUNOLOGY TEACHER Oxygen Saturation 100% 06/02/2023 10:11 AM IMMUNOLOGY TEACHER Inhaled Oxygen Concentration - - Weight 85.3 kg (188 lb) 06/02/2023 10:11 AM IMMUNOLOGY TEACHER Height 172.7 cm (5' 8) 06/02/2023 10:11 AM IMMUNOLOGY TEACHER Body Mass Index 28.59 06/02/2023 10:11 AM IMMUNOLOGY TEACHER Body Mass Index Percentile 93.18% 06/02/2023 10: 11 AM IMMUNOLOGY TEACHER Growth Chart: CDC (Girls, 2- 20 Years) Plan of Treatment Health Maintenance Due Date Last Done Comments Meningococcal B Vaccine (1 of 2 - Standard) 2021 Hepatitis C 11/08/2023 Annual Physical 01/21/2024 01/20/2023, 01/25, 11/16/2019 PHQ-2 (Physician [place]) 05/26/2024 Pneumococcal Vaccine: Pediatrics (0 to 5 Years) and At-Risk Patients (6 to 49 Years) (1 of 2 - PCV) 2024 2006, 05/12/2006, 03/10/2006, Additional history exists COVID-19 Vaccine ( - 2024- season) 2025 11/09/2020, 10/19/2020 DTaP, Tdap and Td Vaccines (8 - Td or Tdap) 11/14/2026 11/14/2016, 11/14/2016, 10/24/2010, Additional history exists Hepatitis B Vaccines Completed 05/12/2006, 03/10/2006, 01/07/2006, Additional history exists HPV Vaccines Completed 11/14/2016, 11/18/2014 Meningococcal Vaccine Aged Out 11/14/2016 No guadalupe nidia eligible based on patient's age to complete this topic RSV Immunizations Under 20 Months Aged Out No longer eligible based on patient's age to complete this topic Insurance [employer] Care Teams Volunteer Services Supervisor Relationship Specialty Start Date End Date Genia Gutierrez FNP [address] [place] [address] [phone] PCP - General Nurse Practitioner Family 05/03/19
--- OUTSIDE RECORDS SUMMARY | 2025-02-14 12:13 | XMS_ITS | Patient Health Record ---
Author Organization [facility] Address [address] [place] [address] Care Team Providers Care Casino Duty Manager Name Role Phone Eric Roxi Primary Care Provider Allergies No Known Allergies Reason For Referral No Information Medications Medication SIG (Take, Route, Frequency, Duration) Notes Start Date End Date Status Iron 325 (65 Fe) MG 1 tablet Orally Three times a Week Unknown Vitamin D 50 MCG (1999 UT) 1 tablet Orally Once a day Unknown Vitamin B 12 500 MCG 1 tablet Orally Once a day Unknown Famotidine 20 MG 1 tablet at bedtime as needed Orally Once a day Unknown busPIRone HCl 30 MG 1 tablet Orally Twice a day; Duration: 30 days Unknown Sertraline HCl 100 MG 1.5 tablet Orally Once a day; Duration: 30 days 02/10/2023 Unknown cloNIDine HCl 0.2 MG 1 tablet at bedtime Orally Once a day; Duration: 30 days Unknown Atomoxetine HCl 40 MG 1 capsule in the morning Orally Once a day; Duration: 30 days Approved until 06/18/24 Unknown Social History Tobacco Use: Social History Observation Description Date Details (start date - stop date) Never Smoker NA - NA Dont use, Tobacco Use/Smoking Question Answer Notes Are you a nonsmoker Section Notes: +cannabis use, no ETOH, isabela franco, street drugs. +cannabis use, no ETOH, isabela franco, street drugs. +cannabis use, no ETOH, isabela franco, street drugs. Problems Problem Type SNOMED Code ICD Code Onset Dates Problem Status W/U Status Risk Notes Problem Depression (646095657) Depression (F32.9) Active confirmed Problem Anxiety (85527055) Anxiety (F41.9) Active confirmed Problem Inattention (09167956) Inattention (R41.840) Active confirmed Plan Of Treatment No Information Insurance Providers Payer Name Payer Address Payer Phone Subscriber Number Group Number Insured Name Patient Relationship to Insured Coverage Start Date Coverage End Date [employer] [address] [place] [address] [id number] Genia Cannon Self - patient is the insured 3 [employer] [address] [place] [address] [id number] Genia Cannon Self - patient is the insured 3 Medical (General) History Medical History History ICD Code kidney stone 10/15. G1, P1 asthma GERD Hospitalization History Reason Date(Month/Year) childbirth 08/15
--- OUTSIDE RECORDS SUMMARY | 2025-02-14 12:13 | XMS_ITS | Clinical Summary ---
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 3 Active Vitamin D, Ergocalciferol, 25698 units CapIndications:Vit garcia D deficiency Take 50,000 [...] depressive d isorder 08/30/2022 Spontaneous vaginal delivery ([facility]) 3 Other iron deficiency anemia 08/30/2022 17 weeks gestation of ([facility]) 2021 Thoughts of self harm 08/28/2021 Mild [...] 05/09/2019 Primary insomnia 05/09/2019 Non-suicidal self harm ([facility]) 019 Depression with anxiety 07/21/2018 Extrinsic asthma ([facility]) 03/20/2011 Overview (05/03/2019): Overview: Resolved Problems Problem [...] on file Legal Sex Female 10:57 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 Gender Identity Not on file Sexual Orientation Not on file Last Filed Vital Signs Vital Sign Reading Time Taken Comments Blood Pressure 117/71 06/02/2023 10:11 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 TRUER Pulse 76 06/02/2023 10:11 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 TRUER Temperature 36.8 C (98.3 F) 06/02/2023 10:11 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 TRUER Respiratory Rate 16 06/02/2023 10:11 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 TRUER Oxygen Saturation 100% 06/02/2023 10:11 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 TRUER Inhaled Oxygen Concentration - - Weight 85.3 kg (188 lb) 06/02/2023 10:11 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 TRUER Height 172.7 cm (5' 8) 06/02/2023 10:11 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 TRUER Body Mass Index 28.59 06/02/2023 10:11 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 TRUER Body Mass Index Percentile 93.18% 06/02/2023 10: 11 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 TRUER Growth Chart: CDC (Girls, 2- 20 Years) Plan of Treatment Health Maintenance Due Date Last Done Comments Meningococcal B Vaccine (1 of 2 - Standard) 2021 Hepatitis C 11/08/2023 Annual Physical 01/21/2024 01/20/2023, 01/25, 11/16/2019 PHQ-2 (Physician [place]) 05/26/2024 Pneumococcal Vaccine: Pediatrics (0 to 5 [...] complete this topic Insurance [employer] Care Teams Lead Software Development Engineer Relationship Specialty Start Date End Date Genia Gutierrez FNP [address] [place] [address] [phone] PCP - General Nurse Practitioner Family 05/03/19
--- OUTSIDE RECORDS SUMMARY | 2025-02-14 12:13 | XMS_ITS | Encounter Summary ---
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
--- OUTSIDE RECORDS SUMMARY | 2025-02-14 12:13 | XMS_ITS | Encounter Summary ---
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
== END 2025-02-14 11:16 | disposition home or self-care (01) ==
PROVIDERS: Emergency Provider Physician Assistant; PCP Nurse Practitioner Family
DX: S16.1XXA Strain of muscle, fascia and tendon at neck level, initial encounter (principal); J45.909 Unspecified asthma, uncomplicated; F41.9 Anxiety disorder, unspecified; F32.A Depression, unspecified; K21.9 Gastro-esophageal reflux disease without esophagitis; X50.0XXA Overexertion from strenuous movement or load, initial encounter
CPT/HCPCS: 72125; 72128; 99284; A9270

== ENCOUNTER 2025-02-16 00:36 | Emergency (ER) | payer OTHER, SELFPAY ==
[2025-02-16 00:37] VITALS: BP 129/71; PULSE 83; RESP 14; TEMP 36.4; O2SAT 100
--- OUTSIDE RECORDS SUMMARY | 2025-02-16 00:38 | XMS_ITS | Patient Health Record ---
Author Organization [facility] Address [address] [place] [address] Care Team Providers Care Surgical Aide Name Role Phone Eric Roxi Primary Care [...] Status W/U Status Risk Notes Problem Depression (815282073) Depression (F32.9) Active confirmed Problem Anxiety (67712922) Anxiety (F41.9) Active confirmed Problem Inattention (85300336) Inattention (R41.840) Active confirmed Plan Of Treatment No Information Insurance Providers Payer Name Payer Address Payer Phone Subscriber Number Group Number Insured Name Patient Relationship to Insured Coverage Start Date Coverage End Date [employer] [address] [place] [phone] [id number] Genia Cannon Self - patient is the insured 3 [employer] [address] [place] [address] [id number] Genia Cannon Self - patient is the insured 3 Medical (General) History Medical History History ICD Code kidney stone 10/15. G1, P1 asthma GERD Hospitalization History Reason Date(Month/Year) childbirth 08/15
--- OUTSIDE RECORDS SUMMARY | 2025-02-16 00:38 | XMS_ITS | Clinical Summary ---
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 3 Active Vitamin D, Ergocalciferol, 36347 units CapIndications:Vit garcia D deficiency Take 50,000 [...] depressive d isorder 08/30/2022 Spontaneous vaginal delivery ([facility]) 3 Other iron deficiency anemia 08/30/2022 17 weeks gestation of ([facility]) 2021 Thoughts of self harm 08/28/2021 Mild [...] 05/09/2019 Primary insomnia 05/09/2019 Non-suicidal self harm ([facility]) 019 Depression with anxiety 07/21/2018 Extrinsic asthma ([facility]) 03/20/2011 Overview (05/03/2019): Overview: Resolved Problems Problem [...] on file Legal Sex Female 10:57 AM SALVAGE CUTTER Gender Identity Not on file Sexual Orientation Not on file Last Filed Vital Signs Vital Sign Reading Time Taken Comments Blood Pressure 117/71 06/02/2023 10:11 AM SALVAGE CUTTER Pulse 76 06/02/2023 10:11 AM SALVAGE CUTTER Temperature 36.8 C (98.3 F) 06/02/2023 10:11 AM SALVAGE CUTTER Respiratory Rate 16 06/02/2023 10:11 AM SALVAGE CUTTER Oxygen Saturation 100% 06/02/2023 10:11 AM SALVAGE CUTTER Inhaled Oxygen Concentration - - Weight 85.3 kg (188 lb) 06/02/2023 10:11 AM SALVAGE CUTTER Height 172.7 cm (5' 8) 06/02/2023 10:11 AM SALVAGE CUTTER Body Mass Index 28.59 06/02/2023 10:11 AM SALVAGE CUTTER Body Mass Index Percentile 93.18% 06/02/2023 10: 11 AM SALVAGE CUTTER Growth Chart: CDC (Girls, 2- 20 Years) Plan of Treatment Health Maintenance Due Date Last Done Comments Meningococcal B Vaccine (1 of 2 - Standard) 2021 Hepatitis C 11/08/2023 Annual Physical 01/21/2024 01/20/2023, 01/25, 11/16/2019 PHQ-2 (Physician [place]) 05/26/2024 Pneumococcal Vaccine: Pediatrics (0 to 5 [...] complete this topic Insurance [employer] Care Teams Professor Of Radiology Relationship Specialty Start Date End Date Genia Gutierrez FNP [address] [place] [address] [phone] PCP - General Nurse Practitioner Family 05/03/19
--- OUTSIDE RECORDS SUMMARY | 2025-02-16 00:38 | XMS_ITS | Encounter Summary ---
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
--- OUTSIDE RECORDS SUMMARY | 2025-02-16 01:18 | XMS_ITS | Clinical Summary ---
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 3 Active Vitamin D, Ergocalciferol, 96757 units CapIndications:Vit garcia D deficiency Take 50,000 [...] depressive d isorder 08/30/2022 Spontaneous vaginal delivery ([facility]) 3 Other iron deficiency anemia 08/30/2022 17 weeks gestation of ([facility]) 2021 Thoughts of self harm [...] 05/09/2019 Primary insomnia 05/09/2019 Non-suicidal self harm ([facility]) 019 Depression with anxiety 07/21/2018 Extrinsic asthma ([facility]) 03/20/2011 Overview (05/03/2019): Overview: Resolved [...] on file 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 Gender Identity Not on file Sexual Orientation Not on file Last Filed Vital Signs Vital Sign Reading Time Taken Comments Blood Pressure 117/71 06/02/2023 10:11 AM STOCK RECEIVER Pulse 76 06/02/2023 10:11 AM STOCK RECEIVER Temperature 36.8 C (98.3 F) 06/02/2023 10:11 AM STOCK RECEIVER Respiratory Rate 16 06/02/2023 10:11 AM STOCK RECEIVER Oxygen Saturation 100% 06/02/2023 10:11 AM STOCK RECEIVER Inhaled Oxygen Concentration - - Weight 85.3 kg (188 lb) 06/02/2023 10:11 AM STOCK RECEIVER Height 172.7 cm (5' 8) 06/02/2023 10:11 AM STOCK RECEIVER Body Mass Index 28.59 06/02/2023 10:11 AM STOCK RECEIVER Body Mass Index Percentile 93.18% 06/02/2023 10: 11 AM STOCK RECEIVER Growth Chart: CDC (Girls, 2- 20 Years) Plan of Treatment Health Maintenance Due Date Last Done Comments Meningococcal B Vaccine (1 of 2 - Standard) 2021 Hepatitis C 11/08/2023 Annual Physical 01/21/2024 01/20/2023, 01/25, 11/16/2019 PHQ-2 (Physician [place]) 05/26/2024 Pneumococcal Vaccine: Pediatrics (0 to 5 [...] complete this topic Insurance [employer] Care Teams Wrecking Supervisor Relationship Specialty Start Date End Date Genia Gutierrez FNP [address] [place] [address] [phone] PCP - General Nurse Practitioner Family 05/03/19
--- OUTSIDE RECORDS SUMMARY | 2025-02-16 01:18 | XMS_ITS | Encounter Summary ---
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
--- NOTE | 2025-02-16 02:12 | ED.RECABL ---
HPI - Recheck/Abnormal Lab/Rx General Chief Complaint: Recheck/Abnormal Lab/Rx Stated Complaint: teri coyle since sat - needs dr note Time Seen by Provider: 02/16/25 01:12 Source: patient Mode of arrival: ambulatory Limitations: no limitations History of Present Illness HPI narrative: This is a 19 year old female that presents to the ER for a work note. Reports recent whiplash injury after riding a roller coaster. She tried to go to work tonight, but was too uncomfortable. She needs a note to be off work. Related Data Home Medications ?Medication ?Instructions ?Recorded ?Confirmed ?Last Taken ?Type sertraline 150 mg capsule 100 mg PO DAILY 12/24/21 08/12/22 1 Day Ago History ~07/16/22 L norgest/E estradiol-E estrad 1 tablet 01/11/25 Unknown History 0.15 mg-30 mcg (84)/10 mcg(7) tabs,3mos (Simpesse) Flovent HFA 02/13/25 Unknown History albuterol 02/13/25 Unknown History aripiprazole .ROUTE 02/13/25 Unknown History buspirone 02/13/25 Unknown History montelukast 02/13/25 Unknown History omeprazole 02/13/25 Unknown History Allergies Allergy/AdvReac Type Severity Reaction Status Date / Time No Known Allergies Allergy Verified 02/13/25 19:14 Review of Systems Review of Systems: All systems reviewed & are unremarkable except as noted in HPI and below PMFSH Past Medical History Medical History Suicide attempt Asthma Anxiety and depression H/O gastroesophageal reflux (GERD) Surgical History Surgical History No pertinent past surgical history Family History Family History Grandparent Diabetes mellitus Social History Social History Smoking status: Never smoker Substance use: current Lack of Transportation: No Lack of Food: Never True Current Housing: I Have Housing Concerned About Future Housing: No Difficulty Paying Gas/Electric Bills: No Difficulty Paying for Meds: No Currently Unemployed: No Education: Grade School Difficulty w/ Childcare or Family Care: YES Living arrangements: with family Occupation/Education: student Gender identity (if verbalized by the patient): Female Spiritual care concerns: No Exam Narrative: GENERAL: Well-appearing, well-nourished, and in no acute distress. HEAD: Normocephalic, atraumatic. EYES: EOMI. NECK: Supple. Tender to palpation of paraspinal musculature CHEST: Clear to auscultation. No respiratory distress. No wheezes rales or rhonchi HEART: Regular rate and rhythm. No murmur heard. Normal peripheral pulses. EXTREMITIES: Normal range of motion. No edema. Strength equal in bilateral upper extremities (5/5) SKIN: Warm, dry, no rash. NEURO: No focal deficits. Alert and oriented x3. PSYCH: Normal mood and affect Course Vital Signs Vital signs: Vital Signs Temperature 97.6 F 02/16/25 00:37 Pulse Rate 83 02/16/25 00:37 Respiratory Rate 14 02/16/25 00:37 Blood Pressure 129/71 02/16/25 00:37 Pulse Oximetry 100 02/16/25 00:37 Oxygen Delivery Room Air 02/16/25 00:37 Temperature 97.6 F 02/16/25 00:37 Pulse Rate 83 02/16/25 00:37 Respiratory Rate 14 02/16/25 00:37 Blood Pressure 129/71 02/16/25 00:37 Pulse Oximetry 100 02/16/25 00:37 Oxygen Delivery Room Air 02/16/25 00:37 MDM - Recheck/Abnormal Lab/Rx MDM Narrative Medical decision making narrative: Patient presents to the ER for work note. Was seen here a couple of days ago diagnosed with cervical strain after riding a roller coaster. Given a note to be off work for couple of days while she recovers Critical Care Time Critical Care Time Critical Care Time: No Discharge Plan Discharge Clinical Impression: Acute cervical myofascial strain Qualifiers: Encounter type: subsequent encounter Qualified Code(s): S16.1XXD - Strain of muscle, fascia and tendon at neck level, subsequent encounter Patient Disposition: Home Condition: Stable Instructions: Cervical Strain (ED) Additional Instructions: Return to the ER if you experience weakness, numbness, or any other symptoms that are concerning to you Rest, use ice/heat, take anti-inflammatories (Aleve, Ibuprofen, Naproxen, etc) or Tylenol as needed for pain as well as muscle relaxer (Flexeril) as needed for pain. Muscle relaxers can make you drowsy, do not drive if you take this Follow up with your primary care doctor Patient Language: Turkmen Prescriptions: No Action L norgest/e.estradiol-e.estrad [Simpesse] 0.15 mg-30 mcg (84)/10 mcg (7) tablets,dose pack,3 month 1 tablet sertraline 150 mg capsule 100 mg PO DAILY aripiprazole .ROUTE omeprazole Flovent HFA albuterol montelukast buspirone cyclobenzaprine 10 mg tablet 10 mg PO TID PRN (Reason: muscle spasm) Qty: 20 0RF ibuprofen 800 mg tablet 800 mg PO Q6H PRN (Reason: pain) Qty: 30 0RF fluticasone propionate [Flonase Allergy Relief] 50 mcg/actuation spray,suspension 2 spray intranasal DAILY Qty: 16 0RF Rx Instructions: administer into each nostril lidocaine 5 % adhesive patch,medicated 1 patch topical DAILY Qty: 15 0RF Rx Instructions: leave on most painful area for up to 12 hrs Follow-up/Referrals: PURA,KAT JESUS [Primary Care Provider] Stand Alone Forms: Work/School Release IP
== END 2025-02-16 02:22 | disposition home or self-care (01) ==
PROVIDERS: Emergency Provider Physician Assistant; PCP Nurse Practitioner Family
DX: S16.1XXD Strain of muscle, fascia and tendon at neck level, subsequent encounter (principal); J45.909 Unspecified asthma, uncomplicated; K21.9 Gastro-esophageal reflux disease without esophagitis; F41.9 Anxiety disorder, unspecified; F32.A Depression, unspecified; Z79.899 Other long term (current) drug therapy; Y93.I1 Activity, roller coaster riding; X50.9XXD Other and unspecified overexertion or strenuous movements or postures, subsequent encounter
CPT/HCPCS: 99281

== ENCOUNTER 2025-02-27 22:13 | Emergency (ER) | payer OTHER, SELFPAY ==
[2025-02-27 22:14] VITALS: BP 119/80; PULSE 101; RESP 14; TEMP 37.2; O2SAT 100
--- OUTSIDE RECORDS SUMMARY | 2025-02-27 22:15 | XMS_ITS | Encounter Summary ---
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
--- OUTSIDE RECORDS SUMMARY | 2025-02-27 22:16 | XMS_ITS | Encounter Summary ---
Author Organization 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
--- OUTSIDE RECORDS SUMMARY | 2025-02-27 22:16 | XMS_ITS | Clinical Summary ---
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 3 Active Vitamin D, Ergocalciferol, 41482 units CapIndications:Vit garcia D deficiency Take 50,000 [...] depressive d isorder 08/30/2022 Spontaneous vaginal delivery ([facility]) 3 Other iron deficiency anemia 08/30/2022 17 weeks gestation of ([facility]) 2021 Thoughts of self harm 08/28/2021 Mild [...] 05/09/2019 Primary insomnia 05/09/2019 Non-suicidal self harm ([facility]) 019 Depression with anxiety 07/21/2018 Extrinsic asthma ([facility]) 03/20/2011 Overview (05/03/2019): Overview: Resolved Problems Problem [...] Encounters Date Type Department Care Team Description 02/16/2025 Scan [facility] Scanned, Doc [facility] 02/13/2025 Scan [facility] Scanned, Doc [facility] 01/30/2025 Scan [facility] Scanned, Doc [facility] 01/22/2025 Scan [facility] Scanned, Doc Med [facility] 01/11/2025 Scan [facility] Scanned, Doc [...] file 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 Gender Identity Not on file Sexual Orientation Not on file Last Filed Vital Signs Vital Sign Reading Time Taken Comments Blood Pressure 117/71 06/02/2023 10:11 AM CLEAN ROOM ASSEMBLER Pulse 76 06/02/2023 10:11 AM CLEAN ROOM ASSEMBLER Temperature 36.8 C (98.3 F) 06/02/2023 10:11 AM CLEAN ROOM ASSEMBLER Respiratory Rate 16 06/02/2023 10:11 AM CLEAN ROOM ASSEMBLER Oxygen Saturation 100% 06/02/2023 10:11 AM CLEAN ROOM ASSEMBLER Inhaled Oxygen Concentration - - Weight 85.3 kg (188 lb) 06/02/2023 10:11 AM CLEAN ROOM ASSEMBLER Height 172.7 cm (5' 8) 06/02/2023 10:11 AM CLEAN ROOM ASSEMBLER Body Mass Index 28.59 06/02/2023 10:11 AM CLEAN ROOM ASSEMBLER Body Mass Index Percentile 93.18% 06/02/2023 10: 11 AM CLEAN ROOM ASSEMBLER Growth Chart: CDC (Girls, 2- 20 Years) Plan of Treatment Health Maintenance Due Date Last Done Comments Meningococcal B Vaccine (1 of 2 - Standard) 2021 Hepatitis C 11/08/2023 Annual Physical 01/21/2024 01/20/2023, 01/25, 11/16/2019 PHQ-2 (Physician [place]) 05/26/2024 Pneumococcal Vaccine: Pediatrics (0 to 5 [...] patient's age to complete this topic Insurance [employer] Care Teams Scrap Worker Relationship Specialty Start Date End Date Genia Gutierrez FNP [address] [place] [phone] PCP - General Nurse Practitioner Family 05/03/19
--- OUTSIDE RECORDS SUMMARY | 2025-02-27 22:16 | XMS_ITS | Patient Health Record ---
Author Organization [facility] Address [address] [place] [address] Care Team Providers Care Graphic Manager Name Role Phone Eric Roxi Primary Care Provider [phone] Allergies No Known Allergies Reason For Referral [...] Status W/U Status Risk Notes Problem Depression (466622529) Depression (F32.9) Active confirmed Problem Anxiety (33796265) Anxiety (F41.9) Active confirmed Problem Inattention (39494425) Inattention (R41.840) Active confirmed Plan Of Treatment No Information Insurance Providers Payer Name Payer Address Payer Phone Subscriber Number Group Number Insured Name Patient Relationship to Insured Coverage Start Date Coverage End Date [employer] [address] [place] [phone] [id number] Genia Cannon Self - patient is the insured 3 [id number] [address] [place] [address] [id number] Genia Cannon Self - patient is the insured 3 Medical (General) History Medical History History ICD Code kidney stone 10/15. G1, P1 asthma GERD Hospitalization History Reason Date(Month/Year) childbirth 08/15
--- NOTE | 2025-02-28 01:24 | ED.DENTAL ---
HPI - Dental/Oral General Chief complaint: Dental/Oral Stated complaint: Upper dental abcess Time Seen by Provider: 02/28/25 00:47 Source: patient Mode of arrival: ambulatory Limitations: no limitations History of Present Illness HPI Narrative: Patient is 19-year-old female who presents with report of dental pain and abscess. Patient has long history of dental infections. Reports over last couple of days, she has been having pain around tooth 10 and has noticed an area of swelling to the roof of her mouth surrounding this tooth. Denies difficulty breathing or swallowing. Denies fevers. Does not currently have a dentist but has been trying to get into [employer]. Related Data Home Medications ?Medication ?Instructions ?Recorded ?Confirmed ?Last Taken ?Type sertraline 150 mg capsule 100 mg PO DAILY 12/24/21 08/12/22 1 Day Ago History ~07/16/22 L norgest/E estradiol-E estrad 1 tablet 01/11/25 Unknown History 0.15 mg-30 mcg (84)/10 mcg(7) tabs,3mos (Simpesse) Flovent HFA 02/13/25 Unknown History albuterol 02/13/25 Unknown History aripiprazole .ROUTE 02/13/25 Unknown History buspirone 02/13/25 Unknown History montelukast 02/13/25 Unknown History omeprazole 02/13/25 Unknown History Allergies Allergy/AdvReac Type Severity Reaction Status Date / Time No Known Allergies Allergy Verified 02/27/25 22:19 Review of Systems Review of Systems: All systems reviewed & are unremarkable except as noted in HPI. All systems reviewed & are unremarkable except as noted in HPI and below PMFSH Past Medical History Medical History Suicide attempt Asthma Anxiety and depression H/O gastroesophageal reflux (GERD) Surgical History Surgical History No pertinent past surgical history Family History Family History Grandparent Diabetes mellitus Social History Social History Smoking status: Never smoker Substance use: current Lack of Transportation: No Lack of Food: Never True Current Housing: I Have Housing Concerned About Future Housing: No Difficulty Paying Gas/Electric Bills: No Difficulty Paying for Meds: No Currently Unemployed: No Education: Grade School Difficulty w/ Childcare or Family Care: YES Living arrangements: with family Occupation/Education: student Gender identity (if verbalized by the patient): Female Spiritual care concerns: No Exam Narrative: GENERAL: Well appearing, well-nourished, non-toxic, in no acute distress. HEAD: Normocephalic, atraumatic. ENT: Diffuse dental decay and caries, most upper teeth eroded to gumline. Mild TTP surrounding tooth #10, small focal area of fluctuance to hard palate near base of this tooth. Focal TTP. No drainage. No stridor or trismus. Maintaining secretions. RESPIRATORY: Airway patent, respirations nonlabored. CARDIOVASCULAR: Regular rate and rhythm MUSCULOSKELETAL: Moves all extremities. No gross deformities. SKIN: Warm, dry, normal color. NEURO: A&O X3. Speech clear. PSYCHIATRIC: Appropriate mood and affect. Normal interaction. Course Vital Signs Vital signs: Vital Signs Temperature 99 F 02/27/25 22:14 Pulse Rate 101 H 02/27/25 22:14 Respiratory Rate 14 02/27/25 22:14 Blood Pressure 119/80 02/27/25 22:14 Pulse Oximetry 100 02/27/25 22:14 Oxygen Delivery Room Air 02/27/25 22:14 Temperature 99 F 02/27/25 22:14 Pulse Rate 101 H 02/27/25 22:14 Respiratory Rate 14 02/27/25 22:14 Blood Pressure 119/80 02/27/25 22:14 Pulse Oximetry 100 02/27/25 22:14 Oxygen Delivery Room Air 02/27/25 22:14 MDM - Dental/Oral MDM Narrative Medical decision making narrative: Patient with small abscess on hard palate of mouth with inflammation surrounding tooth 10. Patient is controlling secretions well without signs of airway compromise. Patient was initially agreeable to abscess I&D, however reports her anxiety is too severe and she cannot tolerate the procedure. She does not wish for the abscess to be drained at this time. Would like to be started on antibiotics and follow-up with dentist. Patient started on clindamycin. She has had amoxicillin/Augmentin recently. Given return precautions. Discharged in stable condition. Medical Records Attestation: I reviewed the patient's medical records. Discharge Plan Discharge Clinical Impression: Dental abscess Patient Disposition: Home Condition: Stable Instructions: Antibiotic Form, Dental Abscess (ED), Toothache (ED) Additional Instructions: Take antibiotics as prescribed. Follow-up with dentist for further evaluation. Recommend Tylenol/ibuprofen as needed for pain. Return for new or worsening concerns, difficulty breathing or swallowing, unable to open mouth, unable to keep down food or drink, or any other symptoms of concern. Patient Language: Marshallese Prescriptions: New clindamycin HCl [Cleocin HCl] 150 mg capsule 450 mg PO TID 7 Days Qty: 63 0RF No Action L norgest/e.estradiol-e.estrad [Simpesse] 0.15 mg-30 mcg (84)/10 mcg (7) tablets,dose pack,3 month 1 tablet sertraline 150 mg capsule 100 mg PO DAILY aripiprazole .ROUTE omeprazole Flovent HFA albuterol montelukast buspirone cyclobenzaprine 10 mg tablet 10 mg PO TID PRN (Reason: muscle spasm) Qty: 20 0RF ibuprofen 800 mg tablet 800 mg PO Q6H PRN (Reason: pain) Qty: 30 0RF fluticasone propionate [Flonase Allergy Relief] 50 mcg/actuation spray,suspension 2 spray intranasal DAILY Qty: 16 0RF Rx Instructions: administer into each nostril lidocaine 5 % adhesive patch,medicated 1 patch topical DAILY Qty: 15 0RF Rx Instructions: leave on most painful area for up to 12 hrs Follow-up/Referrals: PURA,KAT JESUS [Primary Care Provider] Stand Alone Forms: Work/School Release IP Time of Disposition: 01:40
[2025-02-28] MEDS: CLINDAMYCIN HCL 150 MG CAP 450 MG PO (01:52)
[2025-02-28 01:56] VITALS: BP 116/83; PULSE 93; RESP 16; O2SAT 98
[2025-02-28 01:58] VITALS: BP 116/83; PULSE 93; RESP 16; O2SAT 98
== END 2025-02-28 02:01 | disposition home or self-care (01) ==
PROVIDERS: Emergency Provider Physician Assistant; PCP Nurse Practitioner Family
DX: K04.7 Periapical abscess without sinus (principal); J45.909 Unspecified asthma, uncomplicated; F41.9 Anxiety disorder, unspecified; F32.A Depression, unspecified
CPT/HCPCS: 99283; J2003

== ENCOUNTER 2025-03-01 15:06 | Emergency (ER) | payer OTHER, SELFPAY ==
[2025-03-01 15:30] VITALS: BP 115/79; PULSE 70; RESP 16; TEMP 36.6; O2SAT 100
--- NOTE | 2025-03-01 15:54 | ED.GENADULT ---
HPI - General Adult General Chief complaint: Dental/Oral Stated complaint: tooth abscess Time Seen by Provider: 03/01/25 15:21 History of Present Illness HPI narrative: 19-year-old female presents to the emergency department for evaluation for persistent dental pain. Patient was evaluated emergency department yesterday and started on clindamycin. Yesterday patient was told she had a suspected abscess on the referral mouth and patient declined any drainage of this yesterday. Patient presents emergency department today complaining of persistent pain and she was enquiring about getting the abscess drained. Abscess does appear to have spontaneously drained and has shrunken appearing. No palpated fluctuance was noted. The practitioner who cared for the patient yesterday also read checked the abscess and felt that it was shrunken compared to her last visit. Patient will be provided additional medication for pain control Related Data Home Medications ?Medication ?Instructions ?Recorded ?Confirmed ?Last Taken ?Type sertraline 150 mg capsule 100 mg PO DAILY 12/24/21 08/12/22 1 Day Ago History ~07/16/22 L norgest/E estradiol-E estrad 1 tablet 01/11/25 Unknown History 0.15 mg-30 mcg (84)/10 mcg(7) tabs,3mos (Simpesse) Flovent HFA 02/13/25 Unknown History albuterol 02/13/25 Unknown History aripiprazole .ROUTE 02/13/25 Unknown History buspirone 02/13/25 Unknown History montelukast 02/13/25 Unknown History omeprazole 02/13/25 Unknown History Allergies Allergy/AdvReac Type Severity Reaction Status Date / Time No Known Allergies Allergy Verified 02/27/25 22:19 Review of Systems Review of Systems: All systems reviewed & are unremarkable except as noted in HPI and below PMFSH Past Medical History Medical History Suicide attempt Asthma Anxiety and depression H/O gastroesophageal reflux (GERD) Surgical History Surgical History No pertinent past surgical history Family History Family History Grandparent Diabetes mellitus Social History Social History Smoking status: Never smoker Substance use: current Lack of Transportation: No Lack of Food: Never True Current Housing: I Have Housing Concerned About Future Housing: No Difficulty Paying Gas/Electric Bills: No Difficulty Paying for Meds: No Currently Unemployed: No Education: Grade School Difficulty w/ Childcare or Family Care: YES Living arrangements: with family Occupation/Education: student Gender identity (if verbalized by the patient): Female Spiritual care concerns: No Exam Narrative: APPEARANCE: Well appearing, no pain, no distress, well-nourished. HEAD: normocephalic, atraumatic. EYES: PERRLA/EOMI, conjunctivae clear. NOSE: Normal no drainage EARS:TMS clear with good light reflex. THROAT: Pharynx clear, no exudate. mouth: No dental abscess amenable to drainage, patient does have extensive dental caries NECK: Supple. No adenopathy, no masses. RESPIRATORY: Airway patent, respirations nonlabored. Clear to auscultation bilaterally, no rales, rhonchi, wheezing. CARDIOVASCULAR: Regular rate and rhythm without murmurs rubs or gallops. ABDOMINAL: Soft, nontender, nondistended, normal bowel sounds MUSCULOSKELETAL: Moves all extremities. Strength/ROM intact, No edema, No calf tenderness. NEURO: Alert. Cranial nerves II through XII intact. Good gait. Good coordination SKIN: Warm, dry. Normal Color Course Vital Signs Vital signs: Vital Signs Temperature 97.9 F 03/01/25 15:30 Pulse Rate 70 03/01/25 15:30 Respiratory Rate 16 03/01/25 15:30 Blood Pressure 115/79 03/01/25 15:30 Pulse Oximetry 100 03/01/25 15:30 Oxygen Delivery Room Air 03/01/25 15:30 Temperature 97.9 F 03/01/25 15:30 Pulse Rate 70 03/01/25 15:30 Respiratory Rate 16 03/01/25 15:30 Blood Pressure 115/79 03/01/25 15:30 Pulse Oximetry 100 03/01/25 15:30 Oxygen Delivery Room Air 03/01/25 15:30 Medical Decision Making MDM Narrative Medical decision making narrative: 19-year-old female presents emergency department for evaluation for persistent dental pain after being started on clindamycin. Patient has only had 2 doses antibiotic. Patient states that she was having increased pain but was unable to take any medications for pain control or antibiotics due to the pain. patient was provided a follow-up with the [facility] dental resident see. Patient states she has been on the wait list for dentist for last 4 years. Differential Diagnosis Differential Diagnosis: Trismus, dental abscess, dental caries, dental pain Vital Signs Vital Signs: Vital Signs Temperature 97.9 F 03/01/25 15:30 Pulse Rate 70 03/01/25 15:30 Respiratory Rate 16 03/01/25 15:30 Blood Pressure 115/79 03/01/25 15:30 Pulse Oximetry 100 03/01/25 15:30 Oxygen Delivery Room Air 03/01/25 15:30 Temperature 97.9 F 03/01/25 15:30 Pulse Rate 70 03/01/25 15:30 Respiratory Rate 16 03/01/25 15:30 Blood Pressure 115/79 03/01/25 15:30 Pulse Oximetry 100 03/01/25 15:30 Oxygen Delivery Room Air 03/01/25 15:30 Discharge Plan Discharge Clinical Impression: Pain, dental Patient Disposition: Home Condition: Stable Instructions: Antibiotic Form Additional Instructions: Continue antibiotic as directed. Ibuprofen for pain control. [place] as needed for additional pain control. Zofran as needed for nausea control. Have close follow-up with your dentist. Follow-up with the [facility] dental residency. Address: [address] [place] [id number] Patient Language: Macedonian Prescriptions: New hydrocodone-acetaminophen 5-325 mg tablet 1 tablet PO Q12H PRN (Reason: pain) Qty: 14 0RF ondansetron 4 mg tablet,disintegrating 4 mg PO Q8H PRN (Reason: nausea and vomiting) Qty: 14 0RF No Action L norgest/e.estradiol-e.estrad [Simpesse] 0.15 mg-30 mcg (84)/10 mcg (7) tablets,dose pack,3 month 1 tablet sertraline 150 mg capsule 100 mg PO DAILY aripiprazole .ROUTE omeprazole Flovent HFA albuterol montelukast buspirone cyclobenzaprine 10 mg tablet 10 mg PO TID PRN (Reason: muscle spasm) Qty: 20 0RF ibuprofen 800 mg tablet 800 mg PO Q6H PRN (Reason: pain) Qty: 30 0RF fluticasone propionate [Flonase Allergy Relief] 50 mcg/actuation spray,suspension 2 spray intranasal DAILY Qty: 16 0RF Rx Instructions: administer into each nostril lidocaine 5 % adhesive patch,medicated 1 patch topical DAILY Qty: 15 0RF Rx Instructions: leave on most painful area for up to 12 hrs clindamycin HCl [Cleocin HCl] 150 mg capsule 450 mg PO TID 7 Days Qty: 63 0RF Follow-up/Referrals: PURA,KAT JESUS [Primary Care Provider] Stand Alone Forms: Work/School Release IP
--- OUTSIDE RECORDS SUMMARY | 2025-03-01 15:59 | XMS_ITS | Encounter Summary ---
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
--- OUTSIDE RECORDS SUMMARY | 2025-03-01 15:59 | XMS_ITS | Clinical Summary ---
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 3 Active Vitamin D, Ergocalciferol, 54330 units CapIndications:Vit garcia D deficiency Take 50,000 [...] depressive d isorder 08/30/2022 Spontaneous vaginal delivery ([facility]) 3 Other iron deficiency anemia 08/30/2022 17 weeks gestation of ([facility]) 2021 Thoughts [...] 05/09/2019 Primary insomnia 05/09/2019 Non-suicidal self harm ([facility]) 019 Depression with anxiety 07/21/2018 Extrinsic asthma (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 Gender Identity Not on file Sexual Orientation Not on file Last Filed Vital Signs Vital Sign Reading Time Taken Comments Blood Pressure 117/71 06/02/2023 10:11 AM ARCHITECTURAL MANAGER Pulse 76 06/02/2023 10:11 AM ARCHITECTURAL MANAGER Temperature 36.8 C (98.3 F) 06/02/2023 10:11 AM ARCHITECTURAL MANAGER Respiratory Rate 16 06/02/2023 10:11 AM ARCHITECTURAL MANAGER Oxygen Saturation 100% 06/02/2023 10:11 AM ARCHITECTURAL MANAGER Inhaled Oxygen Concentration - - Weight 85.3 kg (188 lb) 06/02/2023 10:11 AM ARCHITECTURAL MANAGER Height 172.7 cm (5' 8) 06/02/2023 10:11 AM ARCHITECTURAL MANAGER Body Mass Index 28.59 06/02/2023 10:11 AM ARCHITECTURAL MANAGER Body Mass Index Percentile 93.18% 06/02/2023 10: 11 AM ARCHITECTURAL MANAGER Growth Chart: CDC (Girls, 2- 20 Years) Plan of Treatment Health Maintenance Due Date Last Done Comments Meningococcal B Vaccine (1 of 2 - Standard) 2021 Hepatitis C 11/08/2023 Annual Physical 01/21/2024 01/20/2023, 01/25, 11/16/2019 PHQ-2 (Physician [place]) 05/26/2024 Pneumococcal Vaccine: Pediatrics (0 to 5 [...] this topic Insurance [employer] Care Teams Barker Peeler Relationship Specialty Start Date End Date Genia Gutierrez FNP [address] [place] [address] [phone] PCP - General Nurse Practitioner Family 05/03/19
--- OUTSIDE RECORDS SUMMARY | 2025-03-01 15:59 | XMS_ITS | Patient Health Record ---
Author Organization [facility] Address [address] [place] [address] Care Team Providers Care Job Change Crew Member Name Role Phone Eric Roxi Primary Care [...] Status W/U Status Risk Notes Problem Depression (303911503) Depression (F32.9) Active confirmed Problem Anxiety (94712547) Anxiety (F41.9) Active confirmed Problem Inattention (35861972) Inattention (R41.840) Active confirmed Plan Of Treatment No Information Insurance Providers Payer Name Payer Address Payer Phone Subscriber Number Group Number Insured Name Patient Relationship to Insured Coverage Start Date Coverage End Date [employer] [address] [place] [address] [id number] Genia Cannon Self - patient is the insured 3 [employer] [address] [place] [address] [id number] Genia Cannon Self - patient is the insured 3 Medical (General) History Medical History History ICD Code kidney stone 10/15. G1, P1 asthma GERD Hospitalization History Reason Date(Month/Year) childbirth 08/15
--- OUTSIDE RECORDS SUMMARY | 2025-03-01 15:59 | XMS_ITS | Encounter Summary ---
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
--- OUTSIDE RECORDS SUMMARY | 2025-03-01 16:39 | XMS_ITS | Clinical Summary ---
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 3 Active Vitamin D, Ergocalciferol, 80813 units CapIndications:Vit garcia D deficiency Take 50,000 [...] depressive d isorder 08/30/2022 Spontaneous vaginal delivery ([facility]) 3 Other iron deficiency anemia 08/30/2022 17 weeks gestation of ([facility]) 2021 Thoughts of self harm 08/28/2021 Mild [...] 05/09/2019 Primary insomnia 05/09/2019 Non-suicidal self harm ([facility]) 019 Depression with anxiety 07/21/2018 Extrinsic asthma ([facility]) 03/20/2011 Overview (05/03/2019): Overview: Resolved Problems Problem [...] on file Legal Sex Female 10:57 AM INTEGRATED 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 Gender Identity Not on file Sexual Orientation Not on file Last Filed Vital Signs Vital Sign Reading Time Taken Comments Blood Pressure 117/71 06/02/2023 10:11 AM INTEGRATED LOGISTICS PROGRAMS DIRECTOR Pulse 76 06/02/2023 10:11 AM INTEGRATED LOGISTICS PROGRAMS DIRECTOR Temperature 36.8 C (98.3 F) 06/02/2023 10:11 AM INTEGRATED LOGISTICS PROGRAMS DIRECTOR Respiratory Rate 16 06/02/2023 10:11 AM INTEGRATED LOGISTICS PROGRAMS DIRECTOR Oxygen Saturation 100% 06/02/2023 10:11 AM INTEGRATED LOGISTICS PROGRAMS DIRECTOR Inhaled Oxygen Concentration - - Weight 85.3 kg (188 lb) 06/02/2023 10:11 AM INTEGRATED LOGISTICS PROGRAMS DIRECTOR Height 172.7 cm (5' 8) 06/02/2023 10:11 AM INTEGRATED LOGISTICS PROGRAMS DIRECTOR Body Mass Index 28.59 06/02/2023 10:11 AM INTEGRATED LOGISTICS PROGRAMS DIRECTOR Body Mass Index Percentile 93.18% 06/02/2023 10: 11 AM INTEGRATED LOGISTICS PROGRAMS DIRECTOR Growth Chart: CDC (Girls, 2- 20 Years) Plan of Treatment Health Maintenance Due Date Last Done Comments Meningococcal B Vaccine (1 of 2 - Standard) 2021 Hepatitis C 11/08/2023 Annual Physical 01/21/2024 01/20/2023, 01/25, 11/16/2019 PHQ-2 (Physician [place]) 05/26/2024 Pneumococcal Vaccine: Pediatrics (0 to 5 [...] this topic Insurance [employer] Care Teams Life Science Teacher Relationship Specialty Start Date End Date Genia Gutierrez FNP [address] [place] [address] [phone] PCP - General Nurse Practitioner Family 05/03/19
--- OUTSIDE RECORDS SUMMARY | 2025-03-01 16:39 | XMS_ITS | Encounter Summary ---
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
--- OUTSIDE RECORDS SUMMARY | 2025-03-01 16:39 | XMS_ITS | Encounter Summary ---
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
== END 2025-03-01 16:30 | disposition home or self-care (01) ==
LOC: ANHED 16:03
PROVIDERS: Emergency Provider Emergency Medicine; PCP Nurse Practitioner Family
DX: K08.89 Other specified disorders of teeth and supporting structures (principal); K02.9 Dental caries, unspecified; K21.9 Gastro-esophageal reflux disease without esophagitis; F41.9 Anxiety disorder, unspecified; F32.A Depression, unspecified; Z79.3 Long term (current) use of hormonal contraceptives; Z79.899 Other long term (current) drug therapy
CPT/HCPCS: 99283

== ENCOUNTER 2025-03-03 | Emergency (ER) | payer OTHER, SELFPAY ==
[2025-03-03 00:16] VITALS: BP 146/78; PULSE 80; RESP 16; TEMP 36.6; O2SAT 99
[2025-03-03 03:50] VITALS: BP 145/72; PULSE 73; RESP 18; TEMP 36.4; O2SAT 99
--- NOTE | 2025-03-03 04:00 | PC.NURSE ---
Patient reports she is no longer going to wait. Instructed to return to ED for continuing or worsening symptoms. Patient ambulated out of ED with all belongings and a steady gait.
== END 2025-03-03 04:00 | disposition left against medical advice (07) ==
PROVIDERS: PCP Nurse Practitioner Family
DX: R11.2 Nausea with vomiting, unspecified (principal)
CPT/HCPCS: 99199

== ENCOUNTER 2025-03-03 10:32 | Emergency (ER) | payer OTHER, SELFPAY ==
[2025-03-03 10:43] VITALS: BP 120/57; PULSE 68; RESP 16; TEMP 36.7; O2SAT 100
--- NOTE | 2025-03-03 12:05 | ED.DENTAL ---
HPI - Dental/Oral General Chief complaint: Dental/Oral Stated complaint: Toothache Time Seen by Provider: 03/03/25 11:15 Source: patient, RN notes reviewed and old records reviewed Mode of arrival: ambulatory Limitations: no limitations History of Present Illness HPI Narrative: 19-year-old female patient presents today complaining of nausea. She has been seen a few times this week in the emergency department for dental abscess, most recently 2 days ago. Three days ago she was placed on clindamycin in the emergency department at [facility], which she has been taking as prescribed. Yesterday she was prescribed Zofran for her nausea as well as some [place] for severe pain. States the Zofran has not been helping and she had to leave work due to the severe nausea and few vomiting episodes. She has also tried some Tums without improvement. Related Data Home Medications ?Medication ?Instructions ?Recorded ?Confirmed ?Last Taken ?Type sertraline 150 mg capsule 100 mg PO DAILY 12/24/21 03/03/25 1 Day Ago History ~07/16/22 L norgest/E estradiol-E estrad 1 tablet PO 01/11/25 Unknown History 0.15 mg-30 mcg (84)/10 mcg(7) tabs,3mos (Simpesse) Flovent HFA 02/13/25 Unknown History albuterol 02/13/25 Unknown History aripiprazole .Route 02/13/25 03/03/25 History buspirone 02/13/25 03/03/25 History montelukast 10 mg PO 02/13/25 Unknown History omeprazole 02/13/25 Unknown History clindamycin HCl 150 mg capsule mg 03/03/25 Unknown History Allergies Allergy/AdvReac Type Severity Reaction Status Date / Time No Known Allergies Allergy Verified 03/03/25 10:54 [facility] Past Medical History Medical History Suicide attempt Asthma Anxiety and depression H/O gastroesophageal reflux (GERD) Surgical History Surgical History No pertinent past surgical history Family History Family History Grandparent Diabetes mellitus Social History Social History Smoking status: Never smoker Substance use: current Lack of Transportation: No Lack of Food: Never True Current Housing: I Have Housing Concerned About Future Housing: No Difficulty Paying Gas/Electric Bills: No Difficulty Paying for Meds: No Currently Unemployed: No Education: Grade School Difficulty w/ Childcare or Family Care: YES Living arrangements: with family Occupation/Education: student Gender identity (if verbalized by the patient): Female Spiritual care concerns: No Comments At time of signature, I have reviewed and agree with nursing past medical, surgical, social and family history unless otherwise noted. Please see nursing chart for further information. There is no relevant family history pertinent to the presenting complaint Exam Narrative: GENERAL: Well-appearing, well-nourished, and in no acute distress. HEAD: Normocephalic, atraumatic. EYES: EOMI. No redness or drainage. Conjunctivae normal. ENT: Mucous membranes pink and moist. Gross dental decay. Ruptured abscess to the hard palate behind tooth 10. No facial swelling noted. NECK: Normal AROM. CHEST: No respiratory distress. EXTREMITIES: Normal range of motion. No edema. SKIN: Warm, dry, no rash. Capillary refill normal. Normal skin turgor. NEURO: No focal deficits. Alert and oriented x3. Gait steady. PSYCH: Normal affect. No signs of depression or anxiety. Course Course Level of Care: Express Care Visit Vital Signs Vital signs: Vital Signs Temperature 98.1 F 03/03/25 10:43 Pulse Rate 68 03/03/25 10:43 Respiratory Rate 16 03/03/25 10:43 Blood Pressure 120/57 L 03/03/25 10:43 Pulse Oximetry 100 03/03/25 10:43 Temperature 98.1 F 03/03/25 10:43 Pulse Rate 68 03/03/25 10:43 Respiratory Rate 16 03/03/25 10:43 Blood Pressure 120/57 L 03/03/25 10:43 Pulse Oximetry 100 03/03/25 10:43 Reviewed MDM - Dental/Oral MDM Narrative Medical decision making narrative: 19-year-old female patient presents today with nausea related to clindamycin use. She is on clindamycin for past couple of days related to severe dental abscess on the hard palate. She has been taking Zofran prescribed by the ER, but states it is not helpful. She is requesting a different medication. Upon exam, patient has a ruptured abscess on the hard palate behind tooth 10. Short prescription of Compazine sent to pharmacy. Unable to prescribe Reglan due to severe contraindication with her aripiprazole. Patient also requesting work note as she had to leave due to vomiting. Vital signs stable. Anticipatory guidance given. Differential Diagnosis Differential diagnosis: Likely other (Nausea and vomiting) Critical Care Time Critical Care Time Critical Care Time: No Discharge Plan Discharge Clinical Impression: Nausea Patient Disposition: Home Condition: Stable Instructions: Acute Nausea and Vomiting (DC) Additional Instructions: Please take the Compazine as prescribed. Continue your clindamycin as prescribed for your dental infection. Follow-up with a dentist as soon as possible. Your blood pressure was elevated above 120/80 today at Urgent Care. This puts you above the threshold for follow up. Please schedule a followup visit with your personal physician as soon as possible, for further evaluation and treatment. Even blood pressure exceeding 120/80 may indicate pre-hypertension. Patient Language: French Prescriptions: New prochlorperazine maleate [Compazine] 10 mg tablet 10 mg PO Q8H PRN (Reason: nausea and vomiting) Qty: 10 0RF No Action L norgest/e.estradiol-e.estrad [Simpesse] 0.15 mg-30 mcg (84)/10 mcg (7) tablets,dose pack,3 month 1 tablet PO clindamycin HCl 150 mg capsule sertraline 150 mg capsule 100 mg PO DAILY aripiprazole .Route omeprazole Flovent HFA albuterol montelukast 10 mg PO buspirone cyclobenzaprine 10 mg tablet 10 mg PO TID PRN (Reason: muscle spasm) Qty: 20 0RF ibuprofen 800 mg tablet 800 mg PO Q6H PRN (Reason: pain) Qty: 30 0RF fluticasone propionate [Flonase Allergy Relief] 50 mcg/actuation spray,suspension 2 spray intranasal DAILY Qty: 16 0RF Rx Instructions: administer into each nostril lidocaine 5 % adhesive patch,medicated 1 patch topical DAILY Qty: 15 0RF Rx Instructions: leave on most painful area for up to 12 hrs hydrocodone-acetaminophen 5-325 mg tablet 1 tablet PO Q12H PRN (Reason: pain) Qty: 14 0RF ondansetron 4 mg tablet,disintegrating 4 mg PO Q8H PRN (Reason: nausea and vomiting) Qty: 14 0RF Follow-up/Referrals: PURA,KAT JESUS [Primary Care Provider] Stand Alone Forms: Work/School Release IP Time of Disposition: 11:31
== END 2025-03-03 11:35 | disposition home or self-care (01) ==
PROVIDERS: Emergency Provider Nurse Practitioner; PCP Nurse Practitioner Family
DX: R11.0 Nausea (principal); T36.8X5A Adverse effect of other systemic antibiotics, initial encounter; K21.9 Gastro-esophageal reflux disease without esophagitis; J45.909 Unspecified asthma, uncomplicated; F41.9 Anxiety disorder, unspecified; F32.A Depression, unspecified
CPT/HCPCS: 99213; G0463

== ENCOUNTER 2025-03-09 22:49 | Emergency (ER) | payer OTHER, SELFPAY ==
[2025-03-09 22:51] VITALS: BP 129/73; PULSE 63; RESP 17; TEMP 36.4; O2SAT 100
--- OUTSIDE RECORDS SUMMARY | 2025-03-09 22:52 | XMS_ITS | Patient Health Record ---
Author Organization [facility] Address [address] [place] [address] Care Team Providers Care Vegetable Canner Name Role Phone Eric Roxi Primary Care Provider [phone] Allergies No Known Allergies Reason For Referral [...] Status W/U Status Risk Notes Problem Depression (904431153) Depression (F32.9) Active confirmed Problem Anxiety (72638395) Anxiety (F41.9) Active confirmed Problem Inattention (44219988) Inattention (R41.840) Active confirmed Plan Of Treatment No Information Insurance Providers Payer Name Payer Address Payer Phone Subscriber Number Group Number Insured Name Patient Relationship to Insured Coverage Start Date Coverage End Date [employer] [address] [place] [id number] Genia Cannon Self - patient is the insured 3 [employer] [address] [place] [id number] Genia Cannon Self - patient is the insured 3 Medical (General) History Medical History History ICD Code kidney stone 10/15. G1, P1 asthma GERD Hospitalization History Reason Date(Month/Year) childbirth 08/15
--- OUTSIDE RECORDS SUMMARY | 2025-03-09 22:52 | XMS_ITS | Encounter Summary ---
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
--- OUTSIDE RECORDS SUMMARY | 2025-03-09 22:53 | XMS_ITS | Clinical Summary ---
Author Organization [facility] Address [address] [place] [address] Care Team Providers Care Local Truck Driver Name Role Phone Genia Gutierrez [facility] Primary Care Provider [phone] Allergies No known active allergies Medications multi [...] ([facility]/HCC) INHALE 2 PUFFS INTO THE LUNGS EVERY [...] at bedtime. 3 Active Vitamin D, Ergocalciferol, 28877 units CapIndications:Vit garcia D deficiency Take 50,000 [...] depressive d isorder 08/30/2022 Spontaneous vaginal delivery 08/30/2022 Other iron deficiency anemia 08/30/2022 17 weeks gestation of 03/12/2022 Thoughts of self harm 08/28/2021 Mild episode [...] 05/09/2019 Primary insomnia 05/09/2019 Non-suicidal self harm 08/10/2018 Depression with anxiety 07/21/2018 Extrinsic asthma 03/20/2011 Overview (05/03/2019): Overview: Resolved Problems Problem [...] Encounters Date Type Department Care Team Description 03/01/2025 Scan [facility] INFO [facility] Scanned, Doc Med Group 02/27/2025 Scan [facility] INFO [facility] Scanned, Doc Med Group 02/16/2025 Scan [facility] INFO [facility] Scanned, [...] on file Legal Sex Female 10:57 AM QUIRK SANDER Gender Identity Not on file Sexual Orientation Not on file Last Filed Vital Signs Vital Sign Reading Time Taken Comments Blood Pressure 117/71 06/02/2023 10:11 AM QUIRK SANDER Pulse 76 06/02/2023 10:11 AM QUIRK SANDER Temperature 36.8 C (98.3 F) 06/02/2023 10:11 AM QUIRK SANDER Respiratory Rate 16 06/02/2023 10:11 AM QUIRK SANDER Oxygen Saturation 100% 06/02/2023 10:11 AM QUIRK SANDER Inhaled Oxygen Concentration - - Weight 85.3 kg (188 lb) 06/02/2023 10:11 AM QUIRK SANDER Height 172.7 cm (5' 8) 06/02/2023 10:11 AM QUIRK SANDER Body Mass Index 28.59 06/02/2023 10:11 AM QUIRK SANDER Body Mass Index Percentile 93.18% 06/02/2023 10: 11 AM QUIRK SANDER Growth Chart: [facility] (Girls, 2- 20 Years) Plan of Treatment Health Maintenance Due Date Last Done Comments Meningococcal B Vaccine (1 of 2 - Standard) 2021 Hepatitis C 11/08/2023 Annual Physical 01/21/2024 01/20/2023, 01/25, 11/16/2019 PHQ-2 (Physician [place]) 05/26/2024 Pneumococcal Vaccine: Pediatrics (0 to 5 Years) and At-Risk Patients (6 to 49 Years) (1 of 2 - PCV) 2024 2006, 05/12/2006, 03/10/2006, Additional history exists COVID-19 Vaccine ( season) 2025 11/09/2020, 10/19/2020 Influenza Adult (#1) 2025 03/07/2017, 03/07/2017, 02/08/2016, Additional history exists DTaP, Tdap and Td Vaccines (8 - Td or Tdap) 11/14/2026 11/14/2016, 11/14/2016, 10/24/2010, Additional history exists Hepatitis B Vaccines Completed 05/12/2006, 03/10/2006, 01/07/2006, Additional history exists Hepatitis A Vaccines Completed 01/20/2009, 01/20/2009, 11/09/2007, Additional history exists HPV Vaccines Completed 11/14/2016, 11/18/2014 Meningococcal Vaccine Aged Out 11/14/2016 No guadalupe nidia eligible based on patient's age to complete this topic RSV Immunizations Under 20 Months Aged Out No longer eligible based on patient's age to complete this topic Insurance [place] [employer] Care Teams Local Truck Driver Relationship Specialty Start Date End Date Genia Gutierrez FNP [address] [place], [place] [id number] PCP - General Nurse Practitioner Family 05/03/19
--- OUTSIDE RECORDS SUMMARY | 2025-03-09 22:53 | XMS_ITS | Encounter Summary ---
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
--- NOTE | 2025-03-09 23:42 | PC.NURSE ---
pt verbalized that she is going somewhere else and not waiting.
--- OUTSIDE RECORDS SUMMARY | 2025-03-09 23:57 | XMS_ITS | Patient Health Record ---
Author Organization [facility] Address [address] [place] [address] Care Team Providers Care Kitman Name Role Phone Eric Roxi Primary Care [...] Status W/U Status Risk Notes Problem Depression (868318933) Depression (F32.9) Active confirmed Problem Anxiety (29975657) Anxiety (F41.9) Active confirmed Problem Inattention (87122834) Inattention (R41.840) Active confirmed Plan Of Treatment No Information Insurance Providers Payer Name Payer Address Payer Phone Subscriber Number Group Number Insured Name Patient Relationship to Insured Coverage Start Date Coverage End Date [employer] [address] [place] [address] [id number] Genia Cannon Self - patient is the insured 3 [employer] [address] [place] [address] [id number] Genia Cannon Self - patient is the insured 3 Medical (General) History Medical History History ICD Code kidney stone 10/15. G1, P1 asthma GERD Hospitalization History Reason Date(Month/Year) childbirth 08/15
--- OUTSIDE RECORDS SUMMARY | 2025-03-09 23:58 | XMS_ITS | Encounter Summary ---
Author Organization 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
--- OUTSIDE RECORDS SUMMARY | 2025-03-09 23:58 | XMS_ITS | Encounter Summary ---
Author Organization [facility] Address [facility] [place] [address] Care Team Providers Care Pocket Stitcher Name Role Phone Genia Gutierrez Primary Care Provider [phone] Encounter Details Date Type Department Care Team (Late st Contact Info) Description 11/18/2023 Therapy Plan [facility] Physical Therapy [address] [facility] [address] [place] [address] Gwen Weber, PT [address] [place], [place] [id number] Social History Tobacco Use Types Packs/Day Years [...] on file Legal Sex Female 10:57 AM ATTACHE Gender Identity Not on file Sexual Orientation [...] documented as of this encounter Care Teams Pocket Stitcher Relationship Specialty Start Date End Date Genia Gutierrez FNP [address] [place] [address] PCP - General Nurse Practitioner Family 05/03/19 documented as of this encounter
--- OUTSIDE RECORDS SUMMARY | 2025-03-09 23:58 | XMS_ITS | Clinical Summary ---
Author Organization [facility] Address [address] [place] [address] Care Team Providers Care Power And Recovery Supervisor Name Role Phone Genia Gutierrez [facility] Primary Care Provider [phone] Allergies No known active allergies Medications multi [...] at bedtime. 3 Active Vitamin D, Ergocalciferol, 27116 units CapIndications:Vit garcia D deficiency Take 50,000 [...] on file Legal Sex Female 10:57 AM SECOND HAND Gender Identity Not on file Sexual Orientation Not on file Last Filed Vital Signs Vital Sign Reading Time Taken Comments Blood Pressure 117/71 06/02/2023 10:11 AM SECOND HAND Pulse 76 06/02/2023 10:11 AM SECOND HAND Temperature 36.8 C (98.3 F) 06/02/2023 10:11 AM SECOND HAND Respiratory Rate 16 06/02/2023 10:11 AM SECOND HAND Oxygen Saturation 100% 06/02/2023 10:11 AM SECOND HAND Inhaled Oxygen Concentration - - Weight 85.3 kg (188 lb) 06/02/2023 10:11 AM SECOND HAND Height 172.7 cm (5' 8) 06/02/2023 10:11 AM SECOND HAND Body Mass Index 28.59 06/02/2023 10:11 AM SECOND HAND Body Mass Index Percentile 93.18% 06/02/2023 10: 11 AM SECOND HAND Growth Chart: [facility] (Girls, 2- 20 Years) Plan of Treatment Health Maintenance Due Date Last Done Comments Meningococcal B Vaccine (1 of 2 - Standard) 2021 Hepatitis C 11/08/2023 Annual Physical 01/21/2024 01/20/2023, 01/25, 11/16/2019 PHQ-2 (Physician [place]) 05/26/2024 Pneumococcal Vaccine: Pediatrics (0 to 5 [...] this topic Insurance [employer] Care Teams Power And Recovery Supervisor Relationship Specialty Start Date End Date Genia Gutierrez FNP [address] [place], [place] [id number] PCP - General Nurse Practitioner Family 05/03/19
== END 2025-03-09 23:58 | disposition left against medical advice (07) ==
PROVIDERS: PCP Nurse Practitioner Family
DX: H92.02 Otalgia, left ear (principal)
CPT/HCPCS: 99199

== ENCOUNTER 2025-03-10 12:20 | Emergency (ER) | payer OTHER, SELFPAY ==
[2025-03-10 12:28] VITALS: BP 98/65; PULSE 65; RESP 16; TEMP 36.4; O2SAT 100
--- NOTE | 2025-03-10 12:32 | ED_ITS ---
HPI - General Adult General Chief complaint: Dental/Oral Stated complaint: STOMACH PAIN/EARACHE/DENTAL ABSCESS/JAW PAIN Time Seen by Provider: 03/10/25 12:35 Source: patient, RN notes reviewed and old records reviewed Mode of arrival: ambulatory Limitations: no limitations History of Present Illness HPI narrative: 19-year-old female presents to the [facility] with multiple complaints. Had an abscess to the upper anterior and upper left, treated in the ER in 02/28 and 03/01, Had been on clindamycin. Today presents for right lower quadrant that she states started yesterday and reports it being sharp and stabbing. States it feels similar to when she has had a kidney stone. Related Data Home Medications ?Medication ?Instructions ?Recorded ?Confirmed ?Last Taken ?Type sertraline 150 mg capsule 100 mg PO DAILY 12/24/2102/17 1 Day Ago History ~07/16/22 L norgest/E estradiol-E estrad 1 tablet PO 01/11/25 U nknown History 0.15 mg-30 mcg (84)/10 mcg(7) tabs,3mos (Simpesse) Flovent HFA 02/13/25 Unknown History albuterol 02/13/25 Unknown History aripiprazole .Route 02/13/25 03/03/25 Hi story buspirone 02/13/25 03/03/25 History montelukast 10 mg PO 02/13/25 Unknown H istory omeprazole 02/13/25 Unknown History clindamycin HCl 150 mg capsule mg 03/03/25 Unknown Hi story Allergies Allergy/AdvReac Type Severity Reaction Status Date / Time No Known Allergies Allergy Verified 03/10/25 12:40 Review of Systems Review of Systems: All systems reviewed & are unremarkable except as noted in HPI and below Constitutional: Constitutional: Reports no additional constitutional complaints ENT: Reports as per HPI, Reports dental pain (Right posterior lower) and Denies lip swelling Cardiovascular: Cardiovascular: Reports no additional cardiovascular complaints, Denies chest pain and Denies dyspnea Respiratory: Respiratory: Reports no additional respiratory complaints, Denies chest congestion, Denies cough and Denies dyspnea Gastrointestinal: Gastrointestinal: Reports as per HPI and Reports abdominal pain (Right lower quadrant) Genitourinary: Genitourinary: Reports no additional female genitourinary complaints Musculoskeletal: Musculoskeletal: Reports no additional musculoskeletal complaints Integumentary/Breasts: Skin/Breast: Reports system reviewed and no additional complaints, except as docu [facility] Past Medical History Medical History Suicide attempt Asthma Anxiety and depression H/O gastroesophageal reflux (GERD) Surgical History Surgical History No pertinent past surgical history Family History Family History Grandparent Diabetes mellitus Social History Social History Smoking status: Never smoker Substance use: current Lack of Transportation: No Lack of Food: Never True Current Housing: I Have Housing Concerned About Future Housing: No Difficulty Paying Gas/Electric Bills: No Difficulty Paying for Meds: No Currently Unemployed: No Education: Grade School Difficulty w/ Childcare or Family Care: YES Living arrangements: with family Occupation/Education: student Gender identity (if verbalized by the patient): Female Spiritual care concerns: No Comments At the time of my signature, I reviewed and agree with the nursing past medical, surgical, social, and family history. There is no relevant family history pertinent to the patient complaint. Exam Const: General: cooperative, no acute distress, well developed, alert, tired appearing, uncomfortable and well nourished Nutritional Appearance: well nourished Orientation/consciousness: patient oriented x3 Limitations: no limitations HENMT: Head: normal to inspection Ears: hearing grossly normal bilaterally, external ears normal, TM's normal bilaterally, EAC's normal, mastoids normal and no periauricular adenopathy Mouth: Yes lip normal, Yes tongue normal and Yes moist mucous membranes Teeth and gingiva: gingiva normal, caries and poor dentition (Multiple decayed teeth including left lower molar #18) Eyes: General: appearance normal, both eyes and all related structures Alignment and Position: alignment normal Neck: Neck: normal visual inspection, full ROM, no lymphadenopathy and no meningeal signs Chest: Chest palpation & inspection: normal inspection of the chest Resp: Effort & Inspection: normal respiratory effort and able to speak in complete sentences Auscultation: clear to auscultation bilaterally, no crackles, no rales, no rhonchi and no wheezes Cardio: Rate: regular rate GI: GI Palp: Yes abdominal tenderness (RLQ) and Yes Soft to palpation Auscultation: normal bowel sounds Back/Spine/Pelvis: Back: no CVA tenderness Skin: General skin exam: normal color and no rashes or lesions noted Neuro: General: patient oriented x3, gait normal, moves all extremities and no meningeal signs Cognition (Neuro): normal cognition Speech: normal speech Gait exam (Neuro): Normal gait present Extrem: General: normal to inspection, full ROM, capillary refill normal and normal gait Psych: Appearance: grossly normal and well kempt Mental Status: mental status grossly normal Speech and movement: Normal speech and movement present and Clear speech present Affect: normal affect Attitude: cooperative Course Course Level of Care: Express Care Visit Vital Signs Vital signs: Vital Signs Temperature 97.6 F 03/10/25 12:28 Pulse Rate 65 03/10/25 12:28 Respiratory Rate 16 03/10/25 12:28 Blood Pressure 98/65 L 03/10/25 12:28 Pulse Oximetry 100 03/10/25 12:28 Temperature 97.6 F 03/10/25 12:28 Pulse Rate 65 03/10/25 12:28 Respiratory Rate 16 03/10/25 12:28 Blood Pressure 98/65 L 03/10/25 12:28 Pulse Oximetry 100 03/10/25 12:28 Reviewed Medical Decision Making MDM Narrative Medical decision making narrative: Patient sitting in exam room. Patient is nontoxic, vitals are stable. Patient presents with left lower dental pain, right lower quadrant pain that she describes as sharp and stabbing. Also left ear pain. Left jaw pain. Multiple decayed teeth are noted throughout mouth. No erythema, swelling noted to the gingiva. Recently treated 10 days ago with clindamycin for a dental infection. Patient denies any urinary symptoms but reports right lower quadrant pain, tender with palpation. Sending for higher level of care Transfer instructions reviewed patient to go to the ER. Patient chose to go to [facility]. Advised papers option nothing to eat or drink until cleared by ER provider All questions have been answered, and the patient deny any further questions. Some parts of this dictation were generated by voice recognition software and may contain typographical and/or grammatical inaccuracies. Differential Diagnosis Differential Diagnosis: Appendicitis, kidney stone, ovarian cyst, constipation, acute abdomen. Dental abscess, dental infection Medical Records Medical records reviewed: Yes I reviewed the external patient's medical records. Vital Signs Vital Signs: Vital Signs Temperature 97.6 F 03/10/25 12:28 Pulse Rate 65 03/10/25 12:28 Respiratory Rate 16 03/10/25 12:28 Blood Pressure 98/65 L 03/10/25 12:28 Pulse Oximetry 100 03/10/25 12:28 Temperature 97.6 F 03/10/25 12:28 Pulse Rate 65 03/10/25 12:28 Respiratory Rate 16 03/10/25 12:28 Blood Pressure 98/65 L 03/10/25 12:28 Pulse Oximetry 100 03/10/25 12:28 Reviewed Lab Data Lab results reviewed: Yes I reviewed the patient's lab results. Labs: Reviewed Critical Care Time Critical Care Time Critical Care Time: No Discharge Plan Discharge Clinical Impression: Chronic dental pain, Acute right lower quadrant pain Patient Disposition: Acute Care Hospital Condition: Stable Patient Language: Frisian Prescriptions: No Action L norgest/e.estradiol-e.estrad [Simpesse] 0.15 mg-30 mcg (84)/10 mcg (7) tablets,dose pack,3 month 1 tablet PO clindamycin HCl 150 mg capsule prochlorperazine maleate [Compazine] 10 mg tablet 10 mg PO Q8H PRN (Reason: nausea and vomiting) Qty: 10 0RF sertraline 150 mg capsule 100 mg PO DAILY aripiprazole .Route omeprazole Flovent HFA albuterol montelukast 10 mg PO buspirone cyclobenzaprine 10 mg tablet 10 mg PO TID PRN (Reason: muscle spasm) Qty: 20 0RF ibuprofen 800 mg tablet 800 mg PO Q6H PRN (Reason: pain) Qty: 30 0RF fluticasone propionate [Flonase Allergy Relief] 50 mcg/actuation spray,suspension 2 spray intranasal DAILY Qty: 16 0RF Rx Instructions: administer into each nostril lidocaine 5 % adhesive patch,medicated 1 patch topical DAILY Qty: 15 0RF Rx Instructions: leave on most painful area for up to 12 hrs hydrocodone-acetaminophen 5-325 mg tablet 1 tablet PO Q12H PRN (Reason: pain) Qty: 14 0RF ondansetron 4 mg tablet,disintegrating 4 mg PO Q8H PRN (Reason: nausea and vomiting) Qty: 14 0RF Follow-up/Referrals: PURA,KAT JESUS [Primary Care Provider] Stand Alone Forms: Work/School Release IP
== END 2025-03-10 12:48 | disposition short-term general hospital (02) ==
PROVIDERS: Emergency Provider Nurse Practitioner; PCP Nurse Practitioner Family
DX: K08.89 Other specified disorders of teeth and supporting structures (principal); R10.31 Right lower quadrant pain; G89.29 Other chronic pain
CPT/HCPCS: 99212; G0463

== ENCOUNTER 2025-03-14 20:45 | Emergency (ER) | payer OTHER, SELFPAY ==
--- NOTE | ~2025-03-14 | XR_ITS ---
XR chest 1V portable INDICATION:SOB, cough . REFERENCE: None FINDINGS: A single AP of the chest demonstrates normal heart size. The lungs are clear. There is no evidence of pneumothorax or pleural effusion. IMPRESSION: No acute pulmonary findings. Reviewed, dictated and finalized at location S.
--- OUTSIDE RECORDS SUMMARY | 2025-03-14 20:47 | XMS_ITS | Patient Health Record ---
Author Organization [facility] Address [address] [place] [address] Care Team Providers Care Counter Help Name Role Phone Eric Roxi Primary Care [...] Status W/U Status Risk Notes Problem Depression (294761219) Depression (F32.9) Active confirmed Problem Anxiety (20295625) Anxiety (F41.9) Active confirmed Problem Inattention (31201129) Inattention (R41.840) Active confirmed Plan Of Treatment No Information Insurance Providers Payer Name Payer Address Payer Phone Subscriber Number Group Number Insured Name Patient Relationship to Insured Coverage Start Date Coverage End Date [employer] [address] [place] [id number] Genia Cannon Self - patient is the insured 3 [employer] [address] [place] [address] [id number] Genia Cannon Self - patient is the insured 3 Medical (General) History Medical History History ICD Code kidney stone 10/15. G1, P1 asthma GERD Hospitalization History Reason Date(Month/Year) childbirth 08/15
--- OUTSIDE RECORDS SUMMARY | 2025-03-14 20:47 | XMS_ITS | Clinical Summary ---
Author Organization [facility] Address [address] [place] [address] Care Team Providers Care Snowsport Instructor Name Role Phone Genia Gutierrez [facility] Primary Care Provider [phone] Allergies No known active allergies Medications multi [...] at bedtime. 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 Gender Identity Not on file Sexual Orientation Not on file Last Filed Vital Signs Vital Sign Reading Time Taken Comments Blood Pressure 117/71 06/02/2023 10:11 AM SILICA SPRAY MIXER Pulse 76 06/02/2023 10:11 AM SILICA SPRAY MIXER Temperature 36.8 C (98.3 F) 06/02/2023 10:11 AM SILICA SPRAY MIXER Respiratory Rate 16 06/02/2023 10:11 AM SILICA SPRAY MIXER Oxygen Saturation 100% 06/02/2023 10:11 AM SILICA SPRAY MIXER Inhaled Oxygen Concentration - - Weight 85.3 kg (188 lb) 06/02/2023 10:11 AM SILICA SPRAY MIXER Height 172.7 cm (5' 8) 06/02/2023 10:11 AM SILICA SPRAY MIXER Body Mass Index 28.59 06/02/2023 10:11 AM SILICA SPRAY MIXER Body Mass Index Percentile 93.18% 06/02/2023 10: 11 AM SILICA SPRAY MIXER Growth Chart: CDC (Girls, 2- 20 Years) Plan of Treatment Health Maintenance Due Date Last Done Comments Meningococcal B Vaccine (1 of 2 - Standard) 2021 Hepatitis C 11/08/2023 Annual Physical 01/21/2024 01/20/2023, 01/25, 11/16/2019 PHQ-2 (Physician [place]) 05/26/2024 Pneumococcal Vaccine: Pediatrics (0 to 5 [...] this topic Insurance [employer] Care Teams Snowsport Instructor Relationship Specialty Start Date End Date Genia Gutierrez FNP [address] [place] [id number] PCP - General Nurse Practitioner Family 05/03/19
--- OUTSIDE RECORDS SUMMARY | 2025-03-14 20:47 | XMS_ITS | Encounter Summary ---
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
--- OUTSIDE RECORDS SUMMARY | 2025-03-14 20:47 | XMS_ITS | Encounter Summary ---
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
--- OUTSIDE RECORDS SUMMARY | 2025-03-14 20:47 | XMS_ITS | Encounter Summary ---
Author Organization [facility] Address [facility] [place] [address] Care Team Providers Care Club Waiter/Waitress Name Role Phone Genia Gutierrez Primary Care Provider [phone] Encounter Details Date Type Department Care Team (Late st Contact Info) Description 11/18/2023 Therapy Plan [facility] Physical Therapy 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
[2025-03-14 20:50] VITALS: BP 100/54; PULSE 68; RESP 18; TEMP 36.8; O2SAT 100
[2025-03-14 22:01] VITALS: O2SAT 100
--- NOTE | 2025-03-14 22:13 | ED.URI ---
HPI - URI/Sore Throat General Chief Complaint: Upper Respiratory Infection Stated Complaint: toothache / ear injection Time Seen by Provider: 03/14/25 21:40 History of Present Illness HPI Narrative: 19-year-old female presenting to the emergency department with cough and congestion as well as a headache for the last few hours. States she has sick contacts at work. Tried taking her albuterol inhaler with some improvement but not feel 100%. Has been doing with a dental infection her left-sided lower jaw and thinks it could be her wisdom teeth and she is trying to get a dentist to evaluate her to take them out. Currently finishing up her clindamycin antibiotics recently. Having pain going towards her left ear as well. No chest pain, nausea, vomiting. Was otherwise in her normal state of health. Besides albuterol did not take anything for her symptoms prior to arrival. Related Data Home Medications ?Medication ?Instructions ?Recorded ?Confirmed ?Last Taken ?Type sertraline 150 mg capsule 100 mg PO DAILY 12/24/21 03/03/25 1 Day Ago History ~07/16/22 L norgest/E estradiol-E estrad 1 tablet PO 01/11/25 Unknown History 0.15 mg-30 mcg (84)/10 mcg(7) tabs,3mos (Simpesse) Flovent HFA 02/13/25 Unknown History albuterol 02/13/25 Unknown History aripiprazole .Route 02/13/25 03/03/25 History buspirone 02/13/25 03/03/25 History montelukast 10 mg PO 02/13/25 Unknown History omeprazole 02/13/25 Unknown History clindamycin HCl 150 mg capsule mg 03/03/25 Unknown History Allergies Allergy/AdvReac Type Severity Reaction Status Date / Time No Known Allergies Allergy Verified 03/14/25 20:46 Review of Systems Review of Systems: As reviewed above in HPI [facility] Past Medical History Medical History Suicide attempt Asthma Anxiety and depression H/O gastroesophageal reflux (GERD) Surgical History Surgical History No pertinent past surgical history Family History Family History Grandparent Diabetes mellitus Social History Social History Smoking status: Never smoker Substance use: current Lack of Transportation: No Lack of Food: Never True Current Housing: I Have Housing Concerned About Future Housing: No Difficulty Paying Gas/Electric Bills: No Difficulty Paying for Meds: No Currently Unemployed: No Education: Grade School Difficulty w/ Childcare or Family Care: YES Living arrangements: with family Occupation/Education: student Gender identity (if verbalized by the patient): Female Spiritual care concerns: No Exam Narrative: GENERAL: [Well-appearing, well-nourished, and in no acute distress.] HEAD: [Normocephalic, atraumatic.] EYES: [PERRLA and EOMI.] ENT: Poor dentition, dental decay in the lower left jaw, no periapical abscess formation or drainage. No tenderness over the maxillary or mandibular jaw. No trismus. Clear tympanic membranes bilaterally, no signs of otitis. No proptosis or pain with manipulation of the ear. NECK: Supple. CHEST: Nonlabored respirations, symmetric chest rise. HEART: [Regular rate and rhythm]. No murmur heard. [Normal peripheral pulses.] ABDOMEN: [Soft, nondistended], [nontender], [No rigidity or guarding] EXTREMITIES: Normal range of motion. [No edema.] SKIN: Warm, dry, no rash. NEURO: [No focal deficits]. Alert and oriented [x3.] PSYCH: [Normal mood and affect.] Course Vital Signs Vital signs: Vital Signs Temperature 36.8 C 03/14/25 20:50 Pulse Rate 68 03/14/25 20:50 Respiratory Rate 18 03/14/25 20:50 Blood Pressure 100/54 L 03/14/25 20:50 Pulse Oximetry 100 03/14/25 20:50 Oxygen Delivery Room Air 03/14/25 20:50 Temperature 36.8 C 03/14/25 20:50 Pulse Rate 65 03/14/25 22:30 Respiratory Rate 12 03/14/25 22:30 Blood Pressure 100/54 L 03/14/25 20:50 Pulse Oximetry 100 03/14/25 22:01 Oxygen Delivery Room Air 03/14/25 22:01 MDM - URI/Sore Throat MDM Narrative Medical decision making narrative: 19-year-old female presenting to the emergency department with cough and congestion as well as a headache for the last few hours. States she has sick contacts at work. Tried taking her albuterol inhaler with some improvement but not feel 100%. Has been doing with a dental infection her left-sided lower jaw and thinks it could be her wisdom teeth and she is trying to get a dentist to evaluate her to take them out. Currently finishing up her clindamycin antibiotics recently. Having pain going towards her left ear as well. No chest pain, nausea, vomiting. Was otherwise in her normal state of health. Besides albuterol did not take anything for her symptoms prior to arrival. Poor dentition, dental decay in the lower left jaw, no periapical abscess formation or drainage. No tenderness over the maxillary or mandibular jaw. No trismus. Clear tympanic membranes bilaterally, no signs of otitis. No proptosis or pain with manipulation of the ear. Symmetric chest rise without any respiratory distress and normal vital signs. Afebrile without any tachypnea tachycardia. Normal blood pressure. Suspect bronchitis, respiratory infection likely viral nature. No signs of otitis saw her urine headache likely stemming from her dental disease which is already being treated at this time. Chest x-ray and COVID flu RSV swabs obtained and she was given a DuoNeb for symptomatic relief. Improved with DuoNeb. COVID flu RSV swabs negative. Chest x-ray clear. Safe for discharge with PCP follow-up. Medical Records Attestation: I reviewed the patient's medical records. Lab Data Attestation: I reviewed the patient's lab results. Labs: Lab Results 03/14/25 Range/Units 21:45 Influenza A (RT-PCR) Negative (Negative) Influenza B (RT-PCR) Negative (Negative) RSV (RT-PCR) Negative (Negative) SARS-CoV-2 RNA (RT-PCR) Negative (Negative) Imaging Data Attestation: I personally reviewed and interpreted this imaging study as follows: My impression: Impressions Chest X-Ray 03/14/25 22:17 IMPRESSION: No acute pulmonary findings. Discharge Plan Discharge Clinical Impression: Acute upper respiratory infection Patient Disposition: Home Condition: Stable Instructions: Antibiotic Form, Upper Respiratory Infection (DC), Cold Symptoms (ED) Additional Instructions: Your chest x-ray shows no pneumonia or bronchitis. Swabs are negative for common viral illnesses. Symptoms consistent with either allergen exposures verses upper respiratory infection. Follow-up with your primary care provider. Take [id number] medications as needed for symptom control. Follow-up with your dentist regarding your teeth. Patient Language: Ukrainian Prescriptions: No Action L norgest/e.estradiol-e.estrad [Simpesse] 0.15 mg-30 mcg (84)/10 mcg (7) tablets,dose pack,3 month 1 tablet PO clindamycin HCl 150 mg capsule prochlorperazine maleate [Compazine] 10 mg tablet 10 mg PO Q8H PRN (Reason: nausea and vomiting) Qty: 10 0RF sertraline 150 mg capsule 100 mg PO DAILY aripiprazole .Route omeprazole Flovent HFA albuterol montelukast 10 mg PO buspirone cyclobenzaprine 10 mg tablet 10 mg PO TID PRN (Reason: muscle spasm) Qty: 20 0RF ibuprofen 800 mg tablet 800 mg PO Q6H PRN (Reason: pain) Qty: 30 0RF fluticasone propionate [Flonase Allergy Relief] 50 mcg/actuation spray,suspension 2 spray intranasal DAILY Qty: 16 0RF Rx Instructions: administer into each nostril lidocaine 5 % adhesive patch,medicated 1 patch topical DAILY Qty: 15 0RF Rx Instructions: leave on most painful area for up to 12 hrs hydrocodone-acetaminophen 5-325 mg tablet 1 tablet PO Q12H PRN (Reason: pain) Qty: 14 0RF ondansetron 4 mg tablet,disintegrating 4 mg PO Q8H PRN (Reason: nausea and vomiting) Qty: 14 0RF Follow-up/Referrals: PURA,KAT JESUS [Primary Care Provider] Time of Disposition: 00:14
--- OUTSIDE RECORDS SUMMARY | 2025-03-14 22:21 | XMS_ITS | Encounter Summary ---
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
--- OUTSIDE RECORDS SUMMARY | 2025-03-14 22:21 | XMS_ITS | Encounter Summary ---
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
--- OUTSIDE RECORDS SUMMARY | 2025-03-14 22:21 | XMS_ITS | Clinical Summary ---
Author Organization [facility] Address [address] [place] [address] Care Team Providers Care Maintenance Mechanic 2Nd Shift Name Role Phone Genia Gutierrez [facility] Primary Care Provider [phone] Allergies No known active allergies Medications multi [...] at bedtime. 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 Gender Identity Not on file Sexual Orientation Not on file Last Filed Vital Signs Vital Sign Reading Time Taken Comments Blood Pressure 117/71 06/02/2023 10:11 AM STRIP MACHINE TENDER Pulse 76 06/02/2023 10:11 AM STRIP MACHINE TENDER Temperature 36.8 C (98.3 F) 06/02/2023 10:11 AM STRIP MACHINE TENDER Respiratory Rate 16 06/02/2023 10:11 AM STRIP MACHINE TENDER Oxygen Saturation 100% 06/02/2023 10:11 AM STRIP MACHINE TENDER Inhaled Oxygen Concentration - - Weight 85.3 kg (188 lb) 06/02/2023 10:11 AM STRIP MACHINE TENDER Height 172.7 cm (5' 8) 06/02/2023 10:11 AM STRIP MACHINE TENDER Body Mass Index 28.59 06/02/2023 10:11 AM STRIP MACHINE TENDER Body Mass Index Percentile 93.18% 06/02/2023 10: 11 AM STRIP MACHINE TENDER Growth Chart: CDC (Girls, 2- 20 Years) Plan of Treatment Health Maintenance Due Date Last Done Comments Meningococcal B Vaccine (1 of 2 - Standard) 2021 Hepatitis C 11/08/2023 Annual Physical 01/21/2024 01/20/2023, 01/25, 11/16/2019 PHQ-2 (Physician [place]) 05/26/2024 Pneumococcal Vaccine: Pediatrics (0 to 5 [...] this topic Insurance [employer] Care Teams Maintenance Mechanic 2Nd Shift Relationship Specialty Start Date End Date Genia Gutierrez FNP [address] [place] [id number] PCP - General Nurse Practitioner Family 05/03/19
--- OUTSIDE RECORDS SUMMARY | 2025-03-14 22:21 | XMS_ITS | Encounter Summary ---
Author Organization [facility] Address On license of [facility] [place] [address] Care Team Providers Care Saw Cleaner Name Role Phone Genia Gutierrez Primary Care Provider [phone] Encounter Details Date Type Department Care Team (Late st Contact Info) Description 11/20/2022 MyChart Message Enc [facility] Medical Group - [facility] [address] [place] [address] Mychart, 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
[2025-03-14 22:30] VITALS: PULSE 65; RESP 12
[2025-03-14] MEDS: IPRATROPIUM 0.5 MG/ALBUTEROL SULFATE 2.5 MG (BASE) AMPUL.NEB 3 ML INHALATION (22:30)
--- NOTE | 2025-03-14 23:06 | PC.NURSE ---
This RN received report from Vannessa WATSON at this time.
[2025-03-14 23:39] LABS: Influenza A QL RT-PCR Negative (Negative); Influenza B QL RT-PCR Negative (Negative); RSV RNA, RT-PCR Negative (Negative); SARS-CoV-2 RNA PCR Negative (Negative)
[2025-03-15 00:15] VITALS: BP 91/55; PULSE 78; RESP 18; O2SAT 100
[2025-03-15 00:16] VITALS: PULSE 71; RESP 17; O2SAT 100
[2025-03-15 00:26] VITALS: BP 107/71; PULSE 70; RESP 19; O2SAT 100
[2025-03-15 00:35] VITALS: BP 107/71; PULSE 65; RESP 17; O2SAT 100
== END 2025-03-15 00:30 | disposition home or self-care (01) ==
PROVIDERS: Student in an Organized Health Care Education/Training Program; Emergency Provider Student in an Organized Health Care Education/Training Program; PCP Nurse Practitioner Family
DX: J06.9 Acute upper respiratory infection, unspecified (principal); Z20.822 Contact with and (suspected) exposure to COVID-19; J45.909 Unspecified asthma, uncomplicated; F41.9 Anxiety disorder, unspecified; F32.A Depression, unspecified
CPT/HCPCS: 71045; 87637; 94640; 99283

== ENCOUNTER 2025-03-15 19:55 | Emergency (ER) | payer OTHER, SELFPAY ==
--- NOTE | 2025-03-15 19:58 | ED.GENADULT ---
HPI - General Adult General Chief complaint: Unspecified Stated complaint: Doctors Note Time Seen by Provider: 03/15/25 19:58 Source: patient, RN notes reviewed and old records reviewed Mode of arrival: ambulatory Limitations: no limitations History of Present Illness HPI narrative: 19-year-old female presents to the [facility] requesting a doctor's note to be off tonight. Has no complaints at this time. Patient has been seen a couple of times in the last week in regards to dental issues, abdominal pain. Was seen in the ER yesterday for congestion. Negative results on flu, COVID. Reviewed previous notes Patient is just requesting a work note Related Data Home Medications ?Medication ?Instructions ?Recorded ?Confirmed ?Last Taken ?Type sertraline 150 mg capsule 100 mg PO DAILY 12/24/21 03/03/25 1 Day Ago History ~07/16/22 L norgest/E estradiol-E estrad 1 tablet PO 01/11/25 Unknown History 0.15 mg-30 mcg (84)/10 mcg(7) tabs,3mos (Simpesse) Flovent HFA 02/13/25 Unknown History albuterol 02/13/25 Unknown History aripiprazole .Route 02/13/25 03/03/25 History buspirone 02/13/25 03/03/25 History montelukast 10 mg PO 02/13/25 Unknown History omeprazole 02/13/25 Unknown History Allergies Allergy/AdvReac Type Severity Reaction Status Date / Time No Known Allergies Allergy Verified 03/15/25 19:58 Review of Systems Review of Systems: All systems reviewed & are unremarkable except as noted in HPI and below Constitutional: Constitutional: Reports no additional constitutional complaints ENT: Reports as per HPI Cardiovascular: Cardiovascular: Reports no additional cardiovascular complaints, Denies chest pain and Denies dyspnea Respiratory: Respiratory: Reports no additional respiratory complaints, Denies chest congestion, Denies cough and Denies dyspnea Musculoskeletal: Musculoskeletal: Reports no additional musculoskeletal complaints Integumentary/Breasts: Skin/Breast: Reports system reviewed and no additional complaints, except as docu PMFSH Past Medical History Medical History Suicide attempt Asthma Anxiety and depression H/O gastroesophageal reflux (GERD) Surgical History Surgical History No pertinent past surgical history Family History Family History Grandparent Diabetes mellitus Social History Social History Smoking status: Never smoker Substance use: current Lack of Transportation: No Lack of Food: Never True Current Housing: I Have Housing Concerned About Future Housing: No Difficulty Paying Gas/Electric Bills: No Difficulty Paying for Meds: No Currently Unemployed: No Education: Grade School Difficulty w/ Childcare or Family Care: YES Living arrangements: with family Occupation/Education: student Gender identity (if verbalized by the patient): Female Spiritual care concerns: No Comments At the time of my signature, I reviewed and agree with the nursing past medical, surgical, social, and family history. There is no relevant family history pertinent to the patient complaint. Exam Const: General: cooperative, healthy appearing, comfortable, no acute distress, well developed, alert and well nourished Nutritional Appearance: well nourished Orientation/consciousness: patient oriented x3 Limitations: no limitations HENMT: Head: normal to inspection Eyes: General: appearance normal, both eyes and all related structures Alignment and Position: alignment normal Neck: Neck: normal visual inspection, full ROM, no lymphadenopathy and no meningeal signs Chest: Chest palpation & inspection: normal inspection of the chest Resp: Effort & Inspection: normal respiratory effort and able to speak in complete sentences Cardio: Rate: regular rate Skin: General skin exam: normal color and no rashes or lesions noted Neuro: General: patient oriented x3, gait normal, moves all extremities and no meningeal signs Cognition (Neuro): normal cognition Speech: normal speech Gait exam (Neuro): Normal gait present Extrem: General: normal to inspection, full ROM, capillary refill normal and normal gait Psych: Appearance: grossly normal and well kempt Mental Status: mental status grossly normal Speech and movement: Normal speech and movement present and Clear speech present Affect: normal affect Attitude: cooperative Course Course Level of Care: Express Care Visit Vital Signs Vital signs: Vital Signs Temperature 98.2 F 03/15/25 20:00 Pulse Rate 80 03/15/25 20:00 Respiratory Rate 16 03/15/25 20:00 Blood Pressure 120/69 03/15/25 20:00 Pulse Oximetry 100 03/15/25 20:00 Temperature 98.2 F 03/15/25 20:00 Pulse Rate 80 03/15/25 20:00 Respiratory Rate 16 03/15/25 20:00 Blood Pressure 120/69 03/15/25 20:00 Pulse Oximetry 100 03/15/25 20:00 Reviewed Medical Decision Making MDM Narrative Medical decision making narrative: Patient sitting in exam room. Patient is nontoxic, vitals are stable. Patient was seen in the ER, reviewed notes from yesterday. No new complaints since yesterday Patient requesting a work note for today Patient is appropriate for outpatient treatment with follow-up Discharge instructions reviewed with patient, as well as provided in writing per nursing staff. The instructions also include specific and strict return/GO TO THE ER as well as f/u information. All questions have been answered, and the patient deny any further questions with discharge and discharge plan. Some parts of this dictation were generated by voice recognition software and may contain typographical and/or grammatical inaccuracies. Medical Records Medical records reviewed: Yes I reviewed the external patient's medical records. Vital Signs Vital Signs: Vital Signs Temperature 98.2 F 03/15/25 20:00 Pulse Rate 80 03/15/25 20:00 Respiratory Rate 16 03/15/25 20:00 Blood Pressure 120/69 03/15/25 20:00 Pulse Oximetry 100 03/15/25 20:00 Temperature 98.2 F 03/15/25 20:00 Pulse Rate 80 03/15/25 20:00 Respiratory Rate 16 03/15/25 20:00 Blood Pressure 120/69 03/15/25 20:00 Pulse Oximetry 100 03/15/25 20:00 Reviewed Lab Data Lab results reviewed: Yes I reviewed the patient's lab results. Labs: Reviewed Critical Care Time Critical Care Time Critical Care Time: No Discharge Plan Discharge Clinical Impression: Head congestion Patient Disposition: Home Condition: Stable Instructions: Antibiotic Form, Upper Respiratory Infection (ED) Patient Language: Lao Prescriptions: No Action L norgest/e.estradiol-e.estrad [Simpesse] 0.15 mg-30 mcg (84)/10 mcg (7) tablets,dose pack,3 month 1 tablet PO prochlorperazine maleate [Compazine] 10 mg tablet 10 mg PO Q8H PRN (Reason: nausea and vomiting) Qty: 10 0RF sertraline 150 mg capsule 100 mg PO DAILY aripiprazole .Route omeprazole Flovent HFA albuterol montelukast 10 mg PO buspirone fluticasone propionate [Flonase Allergy Relief] 50 mcg/actuation spray,suspension 2 spray intranasal DAILY Qty: 16 0RF Rx Instructions: administer into each nostril lidocaine 5 % adhesive patch,medicated 1 patch topical DAILY Qty: 15 0RF Rx Instructions: leave on most painful area for up to 12 hrs ondansetron 4 mg tablet,disintegrating 4 mg PO Q8H PRN (Reason: nausea and vomiting) Qty: 14 0RF Follow-up/Referrals: PHYSICIAN,MANUFACTURING SUPERVISOR [Primary Care Provider, Internal Medicine] Stand Alone Forms: Work/School Release IP Time of Disposition: 20:00
[2025-03-15 20:00] VITALS: BP 120/69; PULSE 80; RESP 16; TEMP 36.8; O2SAT 100
== END 2025-03-15 20:04 | disposition home or self-care (01) ==
PROVIDERS: Emergency Provider Nurse Practitioner
DX: R09.81 Nasal congestion (principal)
CPT/HCPCS: 99211; G0463

== ENCOUNTER 2025-03-23 01:20 | Emergency (ER) | payer OTHER, SELFPAY ==
--- OUTSIDE RECORDS SUMMARY | 2025-03-23 01:22 | XMS_ITS | Encounter Summary ---
Author Organization 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 Gender Identity Not on file Sexual Orientation Not on file documented as of this encounter Plan of Treatment Upcoming Encounters Date Type Department Care Team (Late st Contact Info) Description 03/30/2025 10:00 AM MICROFILM TECHNICIAN Office Visit [facility] Family & Internal Medicine [address] [phone] Genia Gutierrez FNP [address] [place] [phone] documented as of this encounter Visit Diagnoses Not on filedocumented in this encounter Additional Health Concerns Assessment Noted Time PHQ-9 Depression Total Score: 13 023 11:52 AM CDT PHQ-2 Depression Total Score: 0 08/31/19 23 11:54 AM CDT documented as of this encounter Care Teams Patient Services Coordinator Relationship Specialty Start Date End Date Genia Gutierrez FNP [address] [place] [phone] PCP - General Nurse Practitioner Family 05/03/19 documented as of this encounter
--- OUTSIDE RECORDS SUMMARY | 2025-03-23 01:23 | XMS_ITS | Encounter Summary ---
Author Organization [facility] Address [facility] [place] [address] Care Team Providers Care Biomass Production Manager Name Role Phone Genia Gutierrez Primary Care Provider [phone] Encounter Details Date Type Department Care Team (Late Contact Info) Description 11/18/2023 Therapy Plan [facility] Physical Therapy 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 Gender Identity Not on file Sexual Orientation Not on file documented as of this encounter Plan of Treatment Upcoming Encounters Date Type Department Care Team (Late st Contact Info) Description 03/30/2025 10:00 AM RN TELEPHONE TRIAGE Office Visit [facility] Medical [facility] Family & Internal Medicine - [address] [phone] Genia Gutierrez FNP [address] [place] [address] documented as of this encounter Visit Diagnoses Not on filedocumented in this encounter Additional Health Concerns Assessment Noted Time PHQ-9 Depression Total Score: 13 023 11:52 AM CDT PHQ-2 Depression Total Score: 0 08/31/19 23 11:54 AM CDT documented as of this encounter Care Teams Biomass Production Manager Relationship Specialty Start Date End Date Genia Gutierrez FNP [address] [place] [address] PCP - General Nurse Practitioner Family 05/03/19 documented as of this encounter
--- OUTSIDE RECORDS SUMMARY | 2025-03-23 01:23 | XMS_ITS | Patient Health Record ---
Author Organization [facility] Address [address] [place] [address] Care Team Providers Care Informatics Coordinator Name Role Phone Eric Roxi Primary Care Provider [phone] Allergies No Known Allergies Reason For Referral [...] Status W/U Status Risk Notes Problem Depression (666285342) Depression (F32.9) Active confirmed Problem Anxiety (72579986) Anxiety (F41.9) Active confirmed Problem Inattention (71751597) Inattention (R41.840) Active confirmed Plan Of Treatment No Information Insurance Providers Payer Name Payer Address Payer Phone Subscriber Number Group Number Insured Name Patient Relationship to Insured Coverage Start Date Coverage End Date [employer] [address] [place] [address] [id number] Genia Cannon Self - patient is the insured 3 [employer] [address] [place] [address] [id number] Genia Cannon Self - patient is the insured 3 Medical (General) History Medical History History ICD Code kidney stone 10/15. G1, P1 asthma GERD Hospitalization History Reason Date(Month/Year) childbirth 08/15
--- OUTSIDE RECORDS SUMMARY | 2025-03-23 01:23 | XMS_ITS | Encounter Summary ---
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 Gender Identity Not on file Sexual Orientation Not on file documented as of this encounter Plan of Treatment Upcoming Encounters Date Type Department Care Team (Late st Contact Info) Description 03/30/2025 10:00 AM LAW REPORTER Office Visit [facility] Medical Group Family & Internal Medicine [address] [address] Genia Gutierrez FNP [address] [place] [address] documented as of this encounter Visit Diagnoses Not on filedocumented in this encounter Additional Health Concerns Assessment Noted Time PHQ-9 Depression Total Score: 13 023 11:52 AM CDT PHQ-2 Depression Total Score: 0 08/31/19 23 11:54 AM CDT documented as of this encounter Care Teams Limehouse Worker Relationship Specialty Start Date End Date Genia Gutierrez FNP [address] [place] [phone] PCP - General Nurse Practitioner Family 05/03/19 documented as of this encounter
--- OUTSIDE RECORDS SUMMARY | 2025-03-23 01:23 | XMS_ITS | Clinical Summary ---
Author Organization [facility] Address [address] [place] [address] Care Team Providers Care Grain Operations Manager Name Role Phone Genia Gutierrez [facility] Primary Care Provider [phone] Allergies No known active allergies Medications multi [...] at bedtime. 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 Gender Identity Not on file Sexual Orientation Not on file Last Filed Vital Signs Vital Sign Reading Time Taken Comments Blood Pressure 117/71 06/02/2023 10:11 AM WHEEL GRINDER Pulse 76 06/02/2023 10:11 AM WHEEL GRINDER Temperature 36.8 C (98.3 F) 06/02/2023 10:11 AM WHEEL GRINDER Respiratory Rate 16 06/02/2023 10:11 AM WHEEL GRINDER Oxygen Saturation 100% 06/02/2023 10:11 AM WHEEL GRINDER Inhaled Oxygen Concentration - - Weight 85.3 kg (188 lb) 06/02/2023 10:11 AM WHEEL GRINDER Height 172.7 cm (5' 8) 06/02/2023 10:11 AM WHEEL GRINDER Body Mass Index 28.59 06/02/2023 10:11 AM WHEEL GRINDER Body Mass Index Percentile 93.18% 06/02/2023 10: 11 AM WHEEL GRINDER Growth Chart: CDC (Girls, 2- 20 Years) Plan of Treatment Upcoming Encounters Date Type Department Care Team (Late st Contact Info) Description 03/30/2025 10:00 AM WHEEL GRINDER Office Visit [facility] Medical Group Family & Internal Medicine - [place] [address] [place] [phone] Genia Gutierrez FNP [facility] [place] [address] Health Maintenance Due Date Last Done Comments Meningococcal B Vaccine (1 of 2 - Standard) 2021 Hepatitis C 11/08/2023 Annual Physical 01/21/2024 01/20/2023, 01/25, 11/16/2019 PHQ-2 (Physician [place]) 05/26/2024 Pneumococcal Vaccine: Pediatrics (0 to 5 Years) and At-Risk Patients (6 to 49 Years) (1 of 2 - PCV) 2024 2006, 05/12/2006, 03/10/2006, Additional history exists COVID-19 Vaccine ( - season) 2025 11/09/2020, 10/19/2020 Influenza Adult (#1) [...] to complete this topic Insurance [place] [employer] [place] Care Teams Grain Operations Manager Relationship Specialty Start Date End Date Genia Gutierrez FNP [address] [place] [id number] PCP - General Nurse Practitioner Family 05/03/19
[2025-03-23 01:29] VITALS: BP 117/72; PULSE 68; RESP 15; TEMP 36.6; O2SAT 100
--- NOTE | 2025-03-23 01:44 | ED.NECK ---
HPI - Neck Pain/Injury General Chief Complaint: Neck Pain/Injury Stated Complaint: pain/pressure in chest-dizziness Time Seen by Provider: 03/23/25 01:23 History of Present Illness HPI Narrative: Patient is a 19-year-old female who presents to the ER with complaints of right neck pain. She reports her pain has been present intermittently for awhile but worsened approximately 1 week ago. Patient reports the pain is a 6/10 at time of examination. She denies any respiratory symptoms, sore throat, recent fevers. Patient does endorse headache, for which she has taken Excedrin at home. She reports she does lots of repetitive movement at work, including lifting of heavy objects over her shoulders. Patient reports extending her shoulders increases the pain in her right neck. Her medical chart indicates she has a history of mental health conditions and neck pain. Related Data Home Medications ?Medication ?Instructions ?Recorded ?Confirmed ?Last Taken ?Type sertraline 150 mg capsule 100 mg PO DAILY 12/24/21 03/03/25 1 Day Ago History ~07/16/22 L norgest/E estradiol-E estrad 1 tablet PO 01/11/25 Unknown History 0.15 mg-30 mcg (84)/10 mcg(7) tabs,3mos (Simpesse) Flovent HFA 02/13/25 Unknown History albuterol 02/13/25 Unknown History aripiprazole .Route 02/13/25 03/03/25 History buspirone 02/13/25 03/03/25 History montelukast 10 mg PO 02/13/25 Unknown History omeprazole 02/13/25 Unknown History Allergies Allergy/AdvReac Type Severity Reaction Status Date / Time No Known Allergies Allergy Verified 03/23/25 01:23 Review of Systems Review of Systems: All systems reviewed & are unremarkable except as noted in HPI and below PMFSH Past Medical History Medical History Suicide attempt Asthma Anxiety and depression H/O gastroesophageal reflux (GERD) Surgical History Surgical History No pertinent past surgical history Family History Family History Grandparent Diabetes mellitus Social History Social History Smoking status: Never smoker Substance use: current Lack of Transportation: No Lack of Food: Never True Current Housing: I Have Housing Concerned About Future Housing: No Difficulty Paying Gas/Electric Bills: No Difficulty Paying for Meds: No Currently Unemployed: No Education: Grade School Difficulty w/ Childcare or Family Care: YES Living arrangements: with family Occupation/Education: student Gender identity (if verbalized by the patient): Female Spiritual care concerns: No Exam Narrative: GENERAL: Well appearing, well-nourished, non-toxic, in no acute distress. HEAD: Normocephalic, atraumatic. NECK: Supple. No adenopathy, no palpable masses. No pain with cervical palpation. RESPIRATORY: Airway patent, respirations nonlabored. Clear to auscultation bilaterally, no rales, rhonchi, wheezing. CARDIOVASCULAR: Regular rate and rhythm without murmurs, rubs, or gallops. Peripheral pulses 2+ and equal bilaterally. ABDOMINAL: Soft, nontender, nondistended, no hepatosplenomegaly. Normoactive BS. MUSCULOSKELETAL: Moves all extremities. Strength/ROM intact without gross deformities. SKIN: Warm, dry, normal color. No rashes. NEURO: A&O X3. Speech clear. Cranial nerves II-XII intact. No ataxic movements. PSYCHIATRIC: Appropriate mood and affect. Normal interaction. Course Vital Signs Vital signs: Vital Signs Temperature 36.6 C 03/23/25 01:29 Pulse Rate 68 03/23/25 01:29 Respiratory Rate 15 03/23/25 01:29 Blood Pressure 117/72 03/23/25 01:29 Pulse Oximetry 100 03/23/25 01:29 Temperature 36.6 C 03/23/25 01:29 Pulse Rate 68 03/23/25 01:29 Respiratory Rate 15 03/23/25 01:29 Blood Pressure 117/72 03/23/25 01:29 Pulse Oximetry 100 03/23/25 01:29 MDM - Neck Pain/Injury MDM Narrative Medical decision making narrative: Patient is a 19-year-old female who presents to the ER with complaints of right neck pain. She reports her pain has been present intermittently for awhile but worsened approximately 1 week ago. Patient reports the pain is a 6/10 at time of examination. She denies any respiratory symptoms, sore throat, recent fevers. Patient does endorse headache, for which she has taken Excedrin at home. She reports she does lots of repetitive movement at work, including lifting of heavy objects over her shoulders. Patient reports extending her shoulders increases the pain in her right neck. Her medical chart indicates she has a history of mental health conditions and neck pain. Patient Education/Shared MDM: Results of examination shared with patient. She reports she ran out of ibuprofen at home but would like a refill on this prescription. Patient strongly advised to maintain hydration status upon discharge and follow-up with her PCP on March 30, as planned. She will be discharged home with a prescription for ibuprofen and cyclobenzaprine. Strict return precautions provided. Patient verbalized understanding and is in agreement with plan. Vital signs stable at time of discharge. All questions answered. Differential Diagnosis Differential diagnosis: Likely disc disorder of cervical region, cervical radiculopathy, torticollis and strain of neck muscle Discharge Plan Discharge Clinical Impression: Cervicalgia, Neck muscle strain Patient Disposition: Home Condition: Stable Instructions: Antibiotic Form, Neck Pain (ED) Additional Instructions: Please return to the ER with any worsening symptoms. Follow-up with your primary care provider on March 30, as planned. Take all medications as prescribed, including regularly scheduled medications. You may take ibuprofen 800 mg and/or muscle relaxant for pain control. Please ice the area and allow your body to rest. Patient Language: Swedish Prescriptions: New ibuprofen 800 mg tablet 800 mg PO TID PRN (Reason: pain) Qty: 30 0RF cyclobenzaprine 10 mg tablet 10 mg PO TID PRN (Reason: muscle spasm) Qty: 30 0RF No Action L norgest/e.estradiol-e.estrad [Simpesse] 0.15 mg-30 mcg (84)/10 mcg (7) tablets,dose pack,3 month 1 tablet PO prochlorperazine maleate [Compazine] 10 mg tablet 10 mg PO Q8H PRN (Reason: nausea and vomiting) Qty: 10 0RF sertraline 150 mg capsule 100 mg PO DAILY aripiprazole .Route omeprazole Flovent HFA albuterol montelukast 10 mg PO buspirone fluticasone propionate [Flonase Allergy Relief] 50 mcg/actuation spray,suspension 2 spray intranasal DAILY Qty: 16 0RF Rx Instructions: administer into each nostril lidocaine 5 % adhesive patch,medicated 1 patch topical DAILY Qty: 15 0RF Rx Instructions: leave on most painful area for up to 12 hrs ondansetron 4 mg tablet,disintegrating 4 mg PO Q8H PRN (Reason: nausea and vomiting) Qty: 14 0RF Follow-up/Referrals: PHYSICIAN,[employer] [Primary Care Provider, Internal Medicine] Stand Alone Forms: Work/School Release IP Time of Disposition: 01:57
[2025-03-23] MEDS: IBUPROFEN 400 MG TABLET 800 MG PO (01:47)
[2025-03-23 02:25] VITALS: BP 117/78; PULSE 58; RESP 20; O2SAT 100
== END 2025-03-23 02:32 | disposition home or self-care (01) ==
PROVIDERS: Emergency Provider Registered Nurse
DX: S16.1XXA Strain of muscle, fascia and tendon at neck level, initial encounter (principal); J45.909 Unspecified asthma, uncomplicated; K21.9 Gastro-esophageal reflux disease without esophagitis; F41.9 Anxiety disorder, unspecified; F32.A Depression, unspecified; Z79.3 Long term (current) use of hormonal contraceptives; Z79.899 Other long term (current) drug therapy; X50.3XXA Overexertion from repetitive movements, initial encounter; X50.0XXA Overexertion from strenuous movement or load, initial encounter
CPT/HCPCS: 99283; A9270; J7512

== ENCOUNTER 2025-03-30 00:01 | Emergency (ER) | payer OTHER, SELFPAY ==
[2025-03-30 00:02] VITALS: BP 106/64; PULSE 75; RESP 18; TEMP 36.6; O2SAT 100
--- OUTSIDE RECORDS SUMMARY | 2025-03-30 00:04 | XMS_ITS | Clinical Summary ---
Author Organization [facility] Address [address] [place] [address] Care Team Providers Care Paper Steamer Name Role Phone Genia Gutierrez [facility] Primary Care Provider [phone] Allergies No known active allergies Medications multi [...] at bedtime. 3 Active Vitamin D, Ergocalciferol, 79266 units CapIndications:Vit garcia D deficiency Take 50,000 [...] on file Legal Sex Female 10:57 AM WHARF HELPER Gender Identity Not on file Sexual Orientation Not on file Last Filed Vital Signs Vital Sign Reading Time Taken Comments Blood Pressure 117/71 06/02/2023 10:11 AM WHARF HELPER Pulse 76 06/02/2023 10:11 AM WHARF HELPER Temperature 36.8 C (98.3 F) 06/02/2023 10:11 AM WHARF HELPER Respiratory Rate 16 06/02/2023 10:11 AM WHARF HELPER Oxygen Saturation 100% 06/02/2023 10:11 AM WHARF HELPER Inhaled Oxygen Concentration - - Weight 85.3 kg (188 lb) 06/02/2023 10:11 AM WHARF HELPER Height 172.7 cm (5' 8) 06/02/2023 10:11 AM WHARF HELPER Body Mass Index 28.59 06/02/2023 10:11 AM WHARF HELPER Body Mass Index Percentile 93.18% 06/02/2023 10: 11 AM WHARF HELPER Growth Chart: CDC (Girls, 2- 20 Years) Plan of Treatment Upcoming Encounters Date Type Department Care Team (Late st Contact Info) Description 03/30/2025 10:00 AM WHARF HELPER Office Visit [facility] Medical Group Family & Internal Medicine - [place] [address] [place] [phone] Genia Gutierrez FNP [facility] [place] [address] Health Maintenance Due Date Last Done Comments Meningococcal B Vaccine (1 of 2 - Standard) 2021 Hepatitis C 11/08/2023 Annual Physical 01/21/2024 01/20/2023, 01/25, 11/16/2019 PHQ-2 (Physician [place]) 05/26/2024 Pneumococcal Vaccine: Pediatrics (0 to 5 [...] to complete this topic Insurance [place] [place] Care Teams Paper Steamer Relationship Specialty Start Date End Date Genia Gutierrez FNP [address] [place] [phone] PCP - General Nurse Practitioner Family 05/03/19
--- OUTSIDE RECORDS SUMMARY | 2025-03-30 00:04 | XMS_ITS | Patient Health Record ---
Author Organization [facility] Address [address] [place] [address] Care Team Providers Care Welding Machine Operator Helper Arc Name Role Phone Eric Roxi Primary Care Provider [phone] Allergies No Known Allergies Reason For Referral [...] Status W/U Status Risk Notes Problem Depression (205509502) Depression (F32.9) Active confirmed Problem Anxiety (21882893) Anxiety (F41.9) Active confirmed Problem Inattention (51967731) Inattention (R41.840) Active confirmed Plan Of Treatment No Information Insurance Providers Payer Name Payer Address Payer Phone Subscriber Number Group Number Insured Name Patient Relationship to Insured Coverage Start Date Coverage End Date [employer] [address] [place] [address] [id number] Genia Cannon Self - patient is the insured 3 [employer] [address] [place] [address] [id number] Genia Cannon Self - patient is the insured 3 Medical (General) History Medical History History ICD Code kidney stone 10/15. G1, P1 asthma GERD Hospitalization History Reason Date(Month/Year) childbirth 08/15
--- OUTSIDE RECORDS SUMMARY | 2025-03-30 00:04 | XMS_ITS | Encounter Summary ---
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 Gender Identity Not on file Sexual Orientation Not on file documented as of this encounter Plan of Treatment Upcoming Encounters Date Type Department Care Team (Late st Contact Info) Description 03/30/2025 10:00 AM FARM EQUIPMENT TECHNICIAN Office Visit [facility] Medical Group Family & Internal Medicine - [address] [address] Genia Gutierrez FNP [address] [place] [address] documented as of this encounter Visit Diagnoses Not on filedocumented in this encounter Additional Health Concerns Assessment Noted Time PHQ-9 Depression Total Score: 13 023 11:52 AM CDT PHQ-2 Depression Total Score: 0 08/31/19 23 11:54 AM CDT documented as of this encounter Care Teams Dry Clipper Tender Relationship Specialty Start Date End Date Genia Gutierrez FNP [address] [place] [id number] PCP - General Nurse Practitioner Family 05/03/19 documented as of this encounter
[2025-03-30 03:02] VITALS: BP 119/72; PULSE 63; RESP 18; TEMP 36.5; O2SAT 100
[2025-03-30 03:02] LABS: Influenza A QL RT-PCR Negative (Negative); Influenza B QL RT-PCR Negative (Negative); RSV RNA, RT-PCR Negative (Negative); SARS-CoV-2 RNA PCR Negative (Negative)
[2025-03-30 03:05] VITALS: O2SAT 100
--- NOTE | 2025-03-30 03:20 | ED.GENADULT ---
HPI - General Adult General Chief complaint: Upper Respiratory Infection Stated complaint: congested lungs? Time Seen by Provider: 03/30/25 03:07 History of Present Illness HPI narrative: this is a 19-year-old female with history of asthma presenting for URI symptoms. Patient says that earlier today she developed chest congestion, headaches, body aches. She denies any fevers productive cough nausea vomiting or diarrhea. Patient says that she is out of her albuterol for her nebulizer. She she says that usually when she gets his digestion and beer all treatment helps. Related Data Home Medications ?Medication ?Instructions ?Recorded ?Confirmed ?Last Taken ?Type sertraline 150 mg capsule 100 mg PO DAILY 12/24/21 03/03/25 1 Day Ago History ~07/16/22 L norgest/E estradiol-E estrad 1 tablet PO 01/11/25 Unknown History 0.15 mg-30 mcg (84)/10 mcg(7) tabs,3mos (Simpesse) Flovent HFA 02/13/25 Unknown History albuterol 02/13/25 Unknown History aripiprazole .Route 02/13/25 03/03/25 History buspirone 02/13/25 03/03/25 History montelukast 10 mg PO 02/13/25 Unknown History omeprazole 02/13/25 Unknown History Allergies Allergy/AdvReac Type Severity Reaction Status Date / Time No Known Allergies Allergy Verified 03/23/25 01:23 [facility] Past Medical History Medical History Suicide attempt Asthma Anxiety and depression H/O gastroesophageal reflux (GERD) Surgical History Surgical History No pertinent past surgical history Family History Family History Grandparent Diabetes mellitus Social History Social History Substance use: current Lack of Transportation: No Lack of Food: Never True Current Housing: I Have Housing Concerned About Future Housing: No Difficulty Paying Gas/Electric Bills: No Difficulty Paying for Meds: No Currently Unemployed: No Education: Grade School Difficulty w/ Childcare or Family Care: YES Living arrangements: with family Occupation/Education: student Gender identity (if verbalized by the patient): Female Spiritual care concerns: No Exam Narrative: APPEARANCE: No apparent distress. well-appearing Head: atraumatic. EYES: EOMI, NOSE: Atraumatic NECK: Trachea midline RESPIRATORY: No increased rate of breathing , clear to auscultation, speaking full sentences CARDIOVASCULAR: RRR, ABDOMINAL: Non-distended MUSCULOSKELETAl: No obvious deformities NEURO: Alert. Moving 4/4 extremities SKIN:: Warm, dry. Normal color PSYCHIATRIC: Normal affect Course Vital Signs Vital signs: Vital Signs Temperature 97.9 F 03/30/25 00:02 Pulse Rate 75 03/30/25 00:02 Respiratory Rate 18 03/30/25 00:02 Blood Pressure 106/64 03/30/25 00:02 Pulse Oximetry 100 03/30/25 00:02 Oxygen Delivery Room Air 03/30/25 00:02 Temperature 97.7 F 03/30/25 03:02 Pulse Rate 63 03/30/25 03:02 Respiratory Rate 18 03/30/25 03:02 Blood Pressure 119/72 03/30/25 03:02 Pulse Oximetry 100 03/30/25 03:05 Oxygen Delivery Room Air 03/30/25 03:05 Medical Decision Making MDM Narrative Medical decision making narrative: -Course: This is a 19-year-old female history of asthma presenting for URI symptoms. She is well-appearing. She has stable vitals. She is speaking in full sentences does not have any respiratory distress. She is requesting a breathing treatment here which was provided. She will be given prescriptions albuterol inhaler. Instructed follow-up with her primary care physician. Given return precautions. Patient requested a work note which was provided. -DDX includes but is not limited to: Viral syndrome, URI, bronchitis, asthma exacerbation pneumonia Vital Signs Vital Signs: Vital Signs Temperature 97.9 F 03/30/25 00:02 Pulse Rate 75 03/30/25 00:02 Respiratory Rate 18 03/30/25 00:02 Blood Pressure 106/64 03/30/25 00:02 Pulse Oximetry 100 03/30/25 00:02 Oxygen Delivery Room Air 03/30/25 00:02 Temperature 97.7 F 03/30/25 03:02 Pulse Rate 63 03/30/25 03:02 Respiratory Rate 18 03/30/25 03:02 Blood Pressure 119/72 03/30/25 03:02 Pulse Oximetry 100 03/30/25 03:05 Oxygen Delivery Room Air 03/30/25 03:05 Lab Data Labs: Lab Results 03/30/25 Range/Units 02:21 Influenza A (RT-PCR) Negative (Negative) Influenza B (RT-PCR) Negative (Negative) RSV (RT-PCR) Negative (Negative) SARS-CoV-2 RNA (RT-PCR) Negative (Negative) Discharge Plan Discharge Clinical Impression: Chest congestion Patient Disposition: Home Condition: Stable Instructions: Antibiotic Form, Cold Symptoms (ED) Additional Instructions: You were seen in the emergency department for chest congestion. Please use your inhaler every 4 hours as needed. Please follow-up your primary care physician for further management. If you develop fevers, shortness of breath or any new or worsening symptoms please return to ED for re-evaluation. Patient Language: Maltese Prescriptions: New albuterol sulfate 0.63 mg/3 mL solution for nebulization 0.63 mg inhalation Q4H Qty: 90 0RF No Action L norgest/e.estradiol-e.estrad [Simpesse] 0.15 mg-30 mcg (84)/10 mcg (7) tablets,dose pack,3 month 1 tablet PO prochlorperazine maleate [Compazine] 10 mg tablet 10 mg PO Q8H PRN (Reason: nausea and vomiting) Qty: 10 0RF sertraline 150 mg capsule 100 mg PO DAILY aripiprazole .Route omeprazole Flovent HFA albuterol montelukast 10 mg PO buspirone ibuprofen 800 mg tablet 800 mg PO TID PRN (Reason: pain) Qty: 30 0RF cyclobenzaprine 10 mg tablet 10 mg PO TID PRN (Reason: muscle spasm) Qty: 30 0RF fluticasone propionate [Flonase Allergy Relief] 50 mcg/actuation spray,suspension 2 spray intranasal DAILY Qty: 16 0RF Rx Instructions: administer into each nostril lidocaine 5 % adhesive patch,medicated 1 patch topical DAILY Qty: 15 0RF Rx Instructions: leave on most painful area for up to 12 hrs ondansetron 4 mg tablet,disintegrating 4 mg PO Q8H PRN (Reason: nausea and vomiting) Qty: 14 0RF Follow-up/Referrals: PHYSICIAN,[employer] BUSINESS INTELLIGENCE CONSULTANT [Primary Care Provider, Internal Medicine] Stand Alone Forms: Work/School Release IP
[2025-03-30 03:39] VITALS: PULSE 79; RESP 18
[2025-03-30] MEDS: IPRATROPIUM 0.5 MG/ALBUTEROL SULFATE 2.5 MG (BASE) AMPUL.NEB 3 ML 6 ML INHALATION (03:39)
--- OUTSIDE RECORDS SUMMARY | 2025-03-30 03:41 | XMS_ITS | Encounter Summary ---
Author Organization [facility] Address Formerly [facility], [facility] [place] [address] Care Team Providers Care Learning And Development Administrator Name Role Phone Genia Gutierrez Primary Care Provider [phone] Encounter Details Date Type Department Care Team (Late st Contact Info) Description 11/18/2023 Therapy Plan [facility] Physical Therapy [address] [place] [address] Gwen Weber, PT [address] [place], [place] [id number] Social History Tobacco Use Types Packs/Day Years [...] on file Legal Sex Female 10:57 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 Gender Identity Not on file Sexual Orientation Not on file documented as of this encounter Plan of Treatment Upcoming Encounters Date Type Department Care Team (Late st Contact Info) Description 03/30/2025 10:00 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 Office Visit [facility] Family & Internal Medicine - [address] [phone] Genia Gutierrez FNP [address] [place] [address] documented as of this encounter Visit Diagnoses Not on filedocumented in this encounter Additional Health Concerns Assessment Noted Time PHQ-9 Depression Total Score: 13 023 11:52 AM CDT PHQ-2 Depression Total Score: 0 08/31/19 23 11:54 AM CDT documented as of this encounter Care Teams Learning And Development Administrator Relationship Specialty Start Date End Date Genia Gutierrez FNP [address] [place] [id number] PCP - General Nurse Practitioner Family 05/03/19 documented as of this encounter
--- OUTSIDE RECORDS SUMMARY | 2025-03-30 03:41 | XMS_ITS | Clinical Summary ---
Author Organization [facility] Address [address] [place] [address] Care Team Providers Care Medical Donation Professional Name Role Phone Genia Gutierrez [facility] Primary Care Provider [phone] Allergies No known active allergies Medications multi [...] at bedtime. 3 Active Vitamin D, Ergocalciferol, 53781 units CapIndications:Vit garcia D deficiency Take 50,000 [...] on file Legal Sex Female 10:57 AM CODING ASSISTANT Gender Identity Not on file Sexual Orientation Not on file Last Filed Vital Signs Vital Sign Reading Time Taken Comments Blood Pressure 117/71 06/02/2023 10:11 AM CODING ASSISTANT Pulse 76 06/02/2023 10:11 AM CODING ASSISTANT Temperature 36.8 C (98.3 F) 06/02/2023 10:11 AM CODING ASSISTANT Respiratory Rate 16 06/02/2023 10:11 AM CODING ASSISTANT Oxygen Saturation 100% 06/02/2023 10:11 AM CODING ASSISTANT Inhaled Oxygen Concentration - - Weight 85.3 kg (188 lb) 06/02/2023 10:11 AM CODING ASSISTANT Height 172.7 cm (5' 8) 06/02/2023 10:11 AM CODING ASSISTANT Body Mass Index 28.59 06/02/2023 10:11 AM CODING ASSISTANT Body Mass Index Percentile 93.18% 06/02/2023 10: 11 AM CODING ASSISTANT Growth Chart: CDC (Girls, 2- 20 Years) Plan of Treatment Upcoming Encounters Date Type Department Care Team (Late st Contact Info) Description 03/30/2025 10:00 AM CODING ASSISTANT Office Visit [facility] Medical Group Family & Internal Medicine - [place] [address] [place] [id number] Genia Gutierrez FNP [facility] [place] [address] Health Maintenance Due Date Last Done Comments Meningococcal B Vaccine (1 of 2 - Standard) 2021 Hepatitis C 11/08/2023 Annual Physical 01/21/2024 01/20/2023, 01/25, 11/16/2019 PHQ-2 (Physician [place]) 05/26/2024 Pneumococcal Vaccine: Pediatrics (0 to 5 [...] to complete this topic Insurance [place] [employer] [place] [employer] Care Teams Medical Donation Professional Relationship Specialty Start Date End Date Genia Gutierrez FNP [address] [place] [id number] PCP - General Nurse Practitioner Family 05/03/19
[2025-03-30 03:59] VITALS: PULSE 92; RESP 18
[2025-03-30 04:25] VITALS: BP 123/59; PULSE 69; RESP 18; TEMP 36.4; O2SAT 100
== END 2025-03-30 04:26 | disposition home or self-care (01) ==
LOC: ANHED 03:38
PROVIDERS: Emergency Provider Emergency Medicine; PCP Nurse Practitioner Family
DX: R09.89 Other specified symptoms and signs involving the circulatory and respiratory systems (principal); Z20.822 Contact with and (suspected) exposure to COVID-19; J45.909 Unspecified asthma, uncomplicated; K21.9 Gastro-esophageal reflux disease without esophagitis; F41.9 Anxiety disorder, unspecified; F32.A Depression, unspecified; Z79.3 Long term (current) use of hormonal contraceptives; Z79.899 Other long term (current) drug therapy
CPT/HCPCS: 87637; 94640; 99283

== ENCOUNTER 2025-04-13 18:47 | Emergency (ER) | payer OTHER, SELFPAY ==
[2025-04-13 19:02] VITALS: BP 120/75; PULSE 94; RESP 16; TEMP 36.8; O2SAT 100
[2025-04-13 19:18] LABS: EDCOVIDSCREEN Negative (Negative); EDINFLUASCREEN Negative (Negative); EDINFLUBSCREEN Negative (Negative); EDSTREPNEGPOS1 Negative (Negative)
--- NOTE | 2025-04-13 19:29 | ED.URI ---
HPI - URI/Sore Throat General Chief Complaint: Upper Respiratory Infection Stated Complaint: COUGH/SINUS CONGESTION/SORE THROAT Time Seen by Provider: 04/13/25 19:15 Source: patient and RN notes reviewed Mode of arrival: ambulatory Limitations: no limitations History of Present Illness HPI Narrative: Height year old female presents Express Care complaining of cough, congestion, sore throat, sinus pressure for 2 days. Patient denies any other upper respiratory symptoms, fevers, body aches, chills, nausea vomiting, diarrhea, or any other symptoms. Patient was seen in the ER March 30 for similar symptoms however she said those symptoms subsided and she felt better and these are new symptoms. Patient requesting work note because she missed work. Patient reports a history of asthma. Patient says she takes medications but she does not know the names of them. Related Data Home Medications ?Medication ?Instructions ?Recorded ?Confirmed ?Last Taken ?Type sertraline 150 mg capsule 100 mg PO DAILY 12/24/21 04/13/25 1 Day Ago History ~07/16/22 L norgest/E estradiol-E estrad 1 tablet PO 01/11/25 Unknown History 0.15 mg-30 mcg (84)/10 mcg(7) tabs,3mos (Simpesse) Flovent HFA 02/13/25 Unknown History albuterol 02/13/25 Unknown History aripiprazole .Route 02/13/25 03/03/25 History buspirone 02/13/25 03/03/25 History montelukast 10 mg PO 02/13/25 Unknown History omeprazole 02/13/25 Unknown History Allergies Allergy/AdvReac Type Severity Reaction Status Date / Time No Known Allergies Allergy Verified 04/13/25 18:59 Review of Systems Review of Systems: CONSTITUTIONAL: Denies fever, chills, body aches, or sweats. EYES: Denies visual changes, redness, or discharge. ENT: Positive for sinus pressure, congestion, sore throat. Negative for rhinorrhea or otalgia. CARDIOVASCULAR: Denies chest pain, palpitations, or edema. RESPIRATORY: Positive for cough. Negative for dyspnea or wheezing GASTROINTESTINAL: Denies abdominal pain, nausea, vomiting, or diarrhea. GENITOURINARY: Denies dysuria or hematuria. SKIN: Denies rash or itching. MUSCULOSKELETAL: Denies back pain, joint pain, or myalgia. NEUROLOGIC: Denies headache, numbness, or weakness. PSYCHIATRIC: Denies anxiety or depression. All other systems reviewed are negative, except as documented in HPI. [facility] Past Medical History Medical History Suicide attempt Asthma Anxiety and depression H/O gastroesophageal reflux (GERD) Surgical History Surgical History No pertinent past surgical history Family History Family History Grandparent Diabetes mellitus Social History Social History Smoking status: Never smoker Substance use: current Lack of Transportation: No Lack of Food: Never True Current Housing: I Have Housing Concerned About Future Housing: No Difficulty Paying Gas/Electric Bills: No Difficulty Paying for Meds: No Currently Unemployed: No Education: Grade School Difficulty w/ Childcare or Family Care: YES Living arrangements: with family Occupation/Education: student Gender identity (if verbalized by the patient): Female Spiritual care concerns: No Comments At the time of my signature, I reviewed and agree with the nursing past medical, surgical, social, and family history. There is no relevant family history pertinent to the patient complaint. Exam Narrative: GENERAL: This is a well-nourished, well-developed adult, in no apparent distress. They are non ill-appearing, nontoxic appearing. HEAD: normocephalic, atraumatic. EYES: Sclera clear/white. Vision is grossly intact. Conjunctiva normal bilaterally. Extraocular movements intact. EARS: External ears normal, auditory canals clear and without drainage, TMs without erythema or perforation. Hearing grossly intact. NOSE: External nose normal with no obvious nasal discharge, nasal turbinates erythematous, no rhinorrhea. THROAT: Mucous membranes moist, posterior pharynx erythematous without exudate. Uvula is midline. Postnasal drip present. NECK: Neck supple, non-tender without lymphadenopathy, masses or thyromegaly. CARDIOVASCULAR: Regular rate and rhythm without murmurs, gallops, or rubs. RESPIRATORY: Clear to auscultation. Breath sounds equal bilaterally. No wheezes, rales, or rhonchi. SKIN: warm, Dry, intact with no suspicious lesions or rash, good texture and turgor. NEURO: awake, alert, and oriented to person, place and time. There were no obvious focal neurologic abnormalities. EXTREMITIES: No joint tenderness, effusion, or edema noted. BACK: Nontender without deformity. Course Course Emergency Course: Portions of this record may have been created with voice recognition software Level of Care: Express Care Visit Vital Signs Vital signs: Vital Signs Temperature 98.3 F 04/13/25 19:02 Pulse Rate 94 04/13/25 19:02 Respiratory Rate 16 04/13/25 19:02 Blood Pressure 120/75 04/13/25 19:02 Pulse Oximetry 100 04/13/25 19:02 Temperature 98.3 F 04/13/25 19:02 Pulse Rate 94 04/13/25 19:02 Respiratory Rate 16 04/13/25 19:02 Blood Pressure 120/75 04/13/25 19:02 Pulse Oximetry 100 04/13/25 19:02 MDM - URI/Sore Throat MDM Narrative Medical decision making narrative: Rapid COVID, flu, strep were negative. A throat culture is pending. Symptoms likely viral in etiology. Will send patient with benzonatate tablets. Patient said she uses albuterol inhaler for asthma she said her inhaler she currently has is broken, she was requesting a new prescription. Refill for albuterol inhaler sent to pharmacy, will also give her a spacer as she said she lost hers. Discussed physical exam findings. Advised supportive measures and signs/symptoms to go to the ER. Pt is appropriate for outpt treatment and f/u. Differential Diagnosis Differential diagnosis: Likely upper respiratory infection, sinusitis, viral infection, bronchitis and pharyngitis Lab Data Attestation: I reviewed the patient's lab results. Labs: Lab Results 04/13/25 Range/Units 19:16 POC Influenza A Ag Negative (Negative) POC Influenza B Ag Negative (Negative) POC SARS CoV-2 Ag Negative (Negative) POC Grp A Strep Screen Negative (Negative) Discharge Plan Discharge Clinical Impression: Upper respiratory infection Qualifiers: URI type: unspecified viral URI Qualified Code(s): J06.9 - Acute upper respiratory infection, unspecified Patient Disposition: Home Condition: Stable Instructions: Antibiotic Form, Upper Respiratory Infection (ED) Additional Instructions: Your rapid COVID and flu were negative today. Your Rapid strep swab was negative today at [facility]. You will be notified in a few days if the culture comes back positive for strep, and appropriate antibiotics will be called in for you at that time. Your symptoms symptoms are likely due to a viral illness, which is not treated with antibiotics. Viral symptoms can be present for up to 7-10 days. Take Tylenol or ibuprofen as needed for fever or pain. Follow instructions on the bottle. Rest and stay hydrated. Follow up with your PCP in 3-5 days if symptoms are not improving. Go to the ER immediately if you developed chest pain, vomiting, uncontrolled fevers, difficulty breathing or swallowing, or any serious concerns Patient Language: British Prescriptions: New benzonatate 200 mg capsule 200 mg PO BID PRN (Reason: cough) Qty: 20 0RF albuterol sulfate [Ventolin HFA] 90 mcg/actuation HFA aerosol inhaler 2 puff inhalation QID PRN (Reason: shortness of breath or wheezing) Qty: 8.5 0RF (DME) Space Chamber Spacer See Rx Instructions .Route Qty: 1 0RF Rx Instructions: As directed No Action L norgest/e.estradiol-e.estrad [Simpesse] 0.15 mg-30 mcg (84)/10 mcg (7) tablets,dose pack,3 month 1 tablet PO prochlorperazine maleate [Compazine] 10 mg tablet 10 mg PO Q8H PRN (Reason: nausea and vomiting) Qty: 10 0RF sertraline 150 mg capsule 100 mg PO DAILY aripiprazole .Route omeprazole Flovent HFA albuterol montelukast 10 mg PO buspirone ibuprofen 800 mg tablet 800 mg PO TID PRN (Reason: pain) Qty: 30 0RF cyclobenzaprine 10 mg tablet 10 mg PO TID PRN (Reason: muscle spasm) Qty: 30 0RF fluticasone propionate [Flonase Allergy Relief] 50 mcg/actuation spray,suspension 2 spray intranasal DAILY Qty: 16 0RF Rx Instructions: administer into each nostril lidocaine 5 % adhesive patch,medicated 1 patch topical DAILY Qty: 15 0RF Rx Instructions: leave on most painful area for up to 12 hrs ondansetron 4 mg tablet,disintegrating 4 mg PO Q8H PRN (Reason: nausea and vomiting) Qty: 14 0RF albuterol sulfate 0.63 mg/3 mL solution for nebulization 0.63 mg inhalation Q4H Qty: 90 0RF Follow-up/Referrals: PURA,KAT JESUS [Primary Care Provider] Stand Alone Forms: Work/School Release IP Time of Disposition: 19:25
== END 2025-04-13 19:30 | disposition home or self-care (01) ==
PROVIDERS: PCP Nurse Practitioner Family
DX: J06.9 Acute upper respiratory infection, unspecified (principal); Z20.822 Contact with and (suspected) exposure to COVID-19; J45.909 Unspecified asthma, uncomplicated; K21.9 Gastro-esophageal reflux disease without esophagitis; F41.9 Anxiety disorder, unspecified; F32.A Depression, unspecified
CPT/HCPCS: 87426; 87804; 87880; 99213; G0463

== ENCOUNTER 2025-04-17 14:02 | Emergency (ER) | payer OTHER, SELFPAY ==
--- NOTE | ~2025-04-17 | XR_ITS ---
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 Findings: No acute fracture or malalignment. No significant degenerative changes. Soft tissues unremarkable. Impression: No acute fracture or malalignment. Reviewed, dictated and finalized at location P. COM NETWORK MANAGER Impression: No acute fracture or malalignment.
[2025-04-17 14:09] VITALS: BP 119/68; PULSE 69; RESP 16; TEMP 36.6; O2SAT 100
--- NOTE | 2025-04-17 14:39 | ED.UPPEXIN ---
HPI - Extremity Injury (Upper) General Chief Complaint: Extremity Injury, Upper Stated Complaint: r wrist pain Time Seen by Provider: 04/17/25 14:32 Source: patient and RN notes reviewed Mode of arrival: ambulatory Limitations: no limitations History of Present Illness HPI narrative: 19-year-old female patient presents today with right wrist pain and injury. Two days ago she was working at [employer] when she picked up a bag of dog food in her to pop in her wrist causing pain. She was seen by the medical staff at [employer] give her brace and told her to use ice, heat, and ibuprofen. She has been using these things with minimal relief and currently rates her pain at 7/10. Denies numbness or tingling. Related Data Home Medications ?Medication ?Instructions ?Recorded ?Confirmed ?Last Taken ?Type sertraline 150 mg capsule 100 mg PO DAILY 12/24/21 04/13/25 1 Day Ago History ~07/16/22 L norgest/E estradiol-E estrad 1 tablet PO 01/11/25 Unknown History 0.15 mg-30 mcg (84)/10 mcg(7) tabs,3mos (Simpesse) Flovent HFA 02/13/25 Unknown History albuterol 02/13/25 Unknown History aripiprazole .Route 02/13/25 03/03/25 History buspirone 02/13/25 03/03/25 History montelukast 10 mg PO 02/13/25 Unknown History omeprazole 02/13/25 Unknown History Allergies Allergy/AdvReac Type Severity Reaction Status Date / Time No Known Allergies Allergy Verified 04/13/25 18:59 [facility] Past Medical History Medical History Suicide attempt Asthma Anxiety and depression H/O gastroesophageal reflux (GERD) Surgical History Surgical History No pertinent past surgical history Family History Family History Grandparent Diabetes mellitus Social History Social History Smoking status: Never smoker Substance use: current Lack of Transportation: No Lack of Food: Never True Current Housing: I Have Housing Concerned About Future Housing: No Difficulty Paying Gas/Electric Bills: No Difficulty Paying for Meds: No Currently Unemployed: No Education: Grade School Difficulty w/ Childcare or Family Care: YES Living arrangements: with family Occupation/Education: student Gender identity (if verbalized by the patient): Female Spiritual care concerns: No Comments At time of signature, I have reviewed and agree with nursing past medical, surgical, social and family history unless otherwise noted. Please see nursing chart for further information. There is no relevant family history pertinent to the presenting complaint Exam Narrative: GENERAL: Well-appearing, well-nourished, and in no acute distress. HEAD: Normocephalic, atraumatic. EYES: EOMI. No redness or drainage. Conjunctivae normal. ENT: Mucous membranes pink and moist. NECK: Normal AROM. CHEST: No respiratory distress. EXTREMITIES: Right wrist: Mild tenderness to the dorsum of the wrist without edema, ecchymosis, erythema, deformity. No tenderness to the hand. Distal sensation intact. Capillary refill normal. Radial pulse normal. Pain with range of motion in all directions. SKIN: Warm, dry, no rash. Capillary refill normal. Normal skin turgor. NEURO: No focal deficits. Alert and oriented x3. Gait steady. PSYCH: Normal affect. No signs of depression or anxiety. Course Course Level of Care: Express Care Visit Vital Signs Vital signs: Vital Signs Temperature 97.8 F 04/17/25 14:09 Pulse Rate 69 04/17/25 14:09 Respiratory Rate 16 04/17/25 14:09 Blood Pressure 119/68 04/17/25 14:09 Pulse Oximetry 100 04/17/25 14:09 Temperature 97.8 F 04/17/25 14:09 Pulse Rate 69 04/17/25 14:09 Respiratory Rate 16 04/17/25 14:09 Blood Pressure 119/68 04/17/25 14:09 Pulse Oximetry 100 04/17/25 14:09 Reviewed MDM - Extremity Injury (Upper) MDM Narrative Medical decision making narrative: 19-year-old female patient presents today with right wrist pain and injury. Two days ago she was working at [employer] when she picked up a bag of dog food in her to pop in her wrist causing pain. She was seen by the medical staff at [facility] give her brace and told her to use ice, heat, and ibuprofen. She has been using these things with minimal relief and currently rates her pain at 7/10. Denies numbness or tingling. Upon exam, Mild tenderness to the dorsum of the wrist without edema, ecchymosis, erythema, deformity. No tenderness to the hand. Distal sensation intact. Capillary refill normal. Radial pulse normal. Pain with range of motion in all directions. Wrist x-ray negative. Recommend continuing using brace with PCP or orthopedic follow-up in 1 week if symptoms persist. Vital signs stable. Anticipatory guidance given. Differential Diagnosis Differential diagnosis: Likely sprain and strain of wrist and fracture of wrist Imaging Data Radiologist's impression: ITS Impressions Wrist X-Ray 04/17/25 14:59 Impression: No acute fracture or malalignment. Critical Care Time Critical Care Time Critical Care Time: No Discharge Plan Discharge Clinical Impression: Injury of right wrist Qualifiers: Encounter type: initial encounter Qualified Code(s): S69.91XA - Unspecified injury of right wrist, hand and finger(s), initial encounter Patient Disposition: Home Condition: Stable Instructions: Wrist Sprain (ED) Additional Instructions: Your wrist x-ray is negative. Continue the brace, Tylenol or ibuprofen. Follow-up with your employer regarding workman's compensation/on-site medical care. It is recommended that you follow-up with orthopedics in 1 week if symptoms are not improving. Patient Language: Malawian Prescriptions: No Action L norgest/e.estradiol-e.estrad [Simpesse] 0.15 mg-30 mcg (84)/10 mcg (7) tablets,dose pack,3 month 1 tablet PO prochlorperazine maleate [Compazine] 10 mg tablet 10 mg PO Q8H PRN (Reason: nausea and vomiting) Qty: 10 0RF benzonatate 200 mg capsule 200 mg PO BID PRN (Reason: cough) Qty: 20 0RF albuterol sulfate [Ventolin HFA] 90 mcg/actuation HFA aerosol inhaler 2 puff inhalation QID PRN (Reason: shortness of breath or wheezing) Qty: 8.5 0RF (DME) Space Chamber Spacer See Rx Instructions .Route Qty: 1 0RF Rx Instructions: As directed sertraline 150 mg capsule 100 mg PO DAILY aripiprazole .Route omeprazole Flovent HFA albuterol montelukast 10 mg PO buspirone ibuprofen 800 mg tablet 800 mg PO TID PRN (Reason: pain) Qty: 30 0RF cyclobenzaprine 10 mg tablet 10 mg PO TID PRN (Reason: muscle spasm) Qty: 30 0RF fluticasone propionate [Flonase Allergy Relief] 50 mcg/actuation spray,suspension 2 spray intranasal DAILY Qty: 16 0RF Rx Instructions: administer into each nostril lidocaine 5 % adhesive patch,medicated 1 patch topical DAILY Qty: 15 0RF Rx Instructions: leave on most painful area for up to 12 hrs ondansetron 4 mg tablet,disintegrating 4 mg PO Q8H PRN (Reason: nausea and vomiting) Qty: 14 0RF albuterol sulfate 0.63 mg/3 mL solution for nebulization 0.63 mg inhalation Q4H Qty: 90 0RF Follow-up/Referrals: PHYSICIAN,NAUMKEAG OPERATOR [Primary Care Provider, Internal Medicine] Time of Disposition: 15:21
== END 2025-04-17 15:22 | disposition home or self-care (01) ==
PROVIDERS: Emergency Provider Nurse Practitioner
DX: S69.91XA Unspecified injury of right wrist, hand and finger(s), initial encounter (principal); X50.9XXA Other and unspecified overexertion or strenuous movements or postures, initial encounter; Y99.0 Civilian activity done for income or pay; J45.909 Unspecified asthma, uncomplicated; K21.9 Gastro-esophageal reflux disease without esophagitis; F41.9 Anxiety disorder, unspecified; F32.A Depression, unspecified
CPT/HCPCS: 73110; 99213; G0463